=== PATIENT | male | born 1995 | race African-American/Black ===

== ENCOUNTER 2024-12-01 07:49 | Emergency (ER) | payer BC, MEDICAID ==
[~2024-12-01] VITALS: Ht 160 cm; Wt 46.7 kg
[2024-12-01 07:50] VITALS: BP 127/95; PULSE 121; TEMP 98.4
--- NOTE | 2024-12-01 08:05 | ED.PDOC ---
SOB-HPI HPI Comments A 29 YEAR OLD MALE PRESENTS TO THE ED WITH COMPLAINT OF ASTHMA EXACERBATION . PT PRESENTS WITH MOTHER, WITH PT HAVING HISTORY OF AUTISM AND STATES PT HAS BEEN HAVING WHEEZING AND COUGH FOR THE PAST 2 X DAYS. PT HAS BEEN USING HIS HOME NEBULIZER BUT STATES IT HAS NOT BEEN HELPING AND CAME TO ED FOR EVALUATION. PATIENT DENIES FEVER, CHILLS, SHORTNESS OF BREATH, CHEST PAIN, ABDOMINAL PAIN, NAUSEA, VOMITING, HEADACHE, OR OTHER COMPLAINTS. NO OTHER SYMPTOMS OR MODIFYING FACTORS AT THIS TIME. PATIENT IS ALERT, ORIENTED X 4, AND HAS STEADY GAIT. Chief Complaint: Asthma Time Seen by MD: 08:01 Reviewed notes: Nurses Notes, Medications, Allergies Information Source: Patient, Relative (Mother) Mode of Arrival: Ambulatory Brought in by: MOTHER Severity: Moderate Timing: Days Duration: Since onset Context: Spontaneous Onset History of: Asthma Modifying Factors: Inhaler Associated Signs and Symptoms: Wheeze If cough with SOB: Non-Productive Past Medical History PAST MEDICAL HISTORY: Asthma Past Medical History (Other): AUTISM Surgical History: Denies all surgeries Family History Family History: Reviewed,noncontributory to illness Social History Smoker: Non-Smoker Alcohol: Denies ETOH Use Drugs: Denies Drug Use Lives In: Home Constitutional: denies: chills, diaphoresis, fatigue, fever, malaise, sweats, weakness, others EENTM: denies: blurred vision, double vision, ear bleeding, ear discharge, ear drainage, ear pain, ear ringing, eye pain, eye redness, hearing loss, mouth pain, mouth swelling, nasal discharge, nose bleeding, nose congestion, nose pain, photophobia, tearing, throat pain, throat swelling, voice changes, others Respiratory: reports: cough, wheezing; denies: hemoptysis, orthopnea, SOB at rest, shortness of breath, SOB with excertion, stridor, others Cardiovascular: denies: chest pain, dizzy spells, diaphoresis, Dyspnea on exertion, edema, irregular heart beat, left arm pain, lightheadedness, palpitations, PND, syncope, others Gastrointestinal: denies: abdomen distended, abdominal pain, blood streaked bowels, constipated, diarrhea, dysphagia, difficulty swallowing, hematemesis, melena, nausea, poor appetite, poor fluid intake, rectal bleeding, rectal pain, vomiting, others Genitourinary: denies: burning, dysuria, flank pain, frequency, hematuria, incontinence, penile discharge, penile sore, pain, testicle pain, testicle swelling, urgency, others Neurological: denies: dizziness, fainting, headache, left sided numbness, left sided weakness, numbness, paresthesia, pre-existing deficit, right sided numbness, right sided weakness, seizure, speech problems, tingling, tremors, weakness, others Musculoskeletal: denies: back pain, gout, joint pain, joint swelling, muscle pain, muscle stiffness, neck pain, others Integumetry: denies: bruises, change in color, change in hair/nails, dryness, laceration, lesions, lumps, rash, wounds, others Allergic/Immunocompromised: denies: Difficulty Healing, Frequent Infections, Hives, Itching, others Hematologic/Lymphatic: denies: anemia, blood clots, easy bleeding, easy bruising, swollen glands, others Endocrine: denies: excessive hunger, excessive sweating, excessive thirst, excessive urination, flushing, intolerance to cold, intolerance to heat, unex plained weight gain, unexplained weight loss, others Psychiatric: denies: anxiety, bipolar disorder, depression, hopeless, panic disorder, schizophrenia, sleepless, suicidal, others All Other Systems: Reviewed and Negative Physical Exam General Appearance: No Apparent Distress, Normal HEENT: Normal ENT Inspection, PERRL/EOMI, Pharynx Normal, TMs Normal Neck: Full Range of Motion, Non-Tender, Normal, Normal Inspection Respiratory: Chest Non-Tender, Expiration, No Accessory Muscle Use, No Resp iratory Distress, Wheezing Cardiovascular: No Edema, No JVD, No Murmur, No Gallop, Normal Peripheral Pulse s, Regular Rate/Rhythm Breast Exam: Deferred Gastrointestinal: No Organomegaly, Non Tender, No Pulsatile Mass, Normal Bowel Sounds, Soft Genitalia: Deferred Pelvic: Deferred Rectal: Deferred Extremities: No calf tenderness, Normal capillary refill, Normal inspection, Normal range of motion, Non-tender, No pedal edema Musculoskeletal : Apperance: Normal Neurologic: Alert, youth leader II-XII nml as Tested, No Motor Deficits, Normal Affect, Normal Mood, No Sensory Deficits Cerebellar Function: Normal Reflexes: Normal Skin: Dry, Normal Color, Warm Peripheral Pulses: 2+ carotid (R), 2+ carotid (L) Lymphatic: No Adenopathy Was a procedure done? Was a procedure done?: No Differential Dx Differential Diagnosis: Asthma, Bronchitis, Pneumonia, Respiratory Distress, Pharyngitis, URI X-Ray, Labs, Meds, VS Vital Signs Date Time Temp Pulse Resp B/P (MAP) Pulse Ox O2 Delivery O2 Flow Rate FiO2 12/01/24 08:25 18 97 Room Air* 0 21 12/01/24 07:50 98.4 121 22 127/95 95 98.4 Current Medications Medications (Trade) Dose Ordered Sig/Chucky Route Start Time Stop Time Status Last Admin Albuterol (Ventolin Medneb) 5 mg ONCE ONCE NEB 12/01/24 08:00 12/01/24 08:01 DC 12/01/24 08:25 Ipratropium [place] (Atrovent Medneb) 1 mg ONCE ONCE NEB 12/01/24 08:00 12/01/24 08:01 DC 12/01/24 08:25 Methylprednisolone Sodium Succinate (Solu Medrol) 125 mg ONCE ONCE IM 12/01/24 08:00 12/01/24 08:01 DC 12/01/24 08:14 [place] [address] Ph: [phone] DIAGNOSTIC IMAGING Diagnostic Imaging Report : [id number] Signed PATIENT: GLENDA CORRAL ACCT: [id number] UNIT: [id number] : 1995 LOC: ER ROOM / BED: / AGE / SEX: 29 / M ADM STATUS: REG ER SERVICE [id number] ORDERING PHYSICIAN: YOHANA MARTINEZ PROCEDURE(s): CXR1 - CHEST XRAY 1 VIEW REASON: WHEEZING, HX OF ASTHMA ORDER NUMBER(s): [id number], ACCESSION NUMBER(s): [id number] CHEST RADIOGRAPH Indication: WHEEZING, HX OF ASTHMA Technique: XY CHEST XRAY 1 VIEW Comparison: None FINDINGS: The cardiac silhouette is unremarkable. The lungs demonstrate no pulmonary airspace consolidation. The pulmonary vasculature is unremarkable. There is no pleural effusion. There is no pneumothorax. IMPRESSION: No pulmonary airspace consolidation. ATED BY: OLU PEREZ MD DICTATED DATE/TIME: 12/01/24825 SIGNED BY: OLU PEREZ MD SIGNED DATE/TIME: 12/01/24825 CC: X-Ray, Labs, Meds, VS Comment COURSE: EXTERNAL MEDICAL RECORDS REVIEWED: [NONE] INDEPENDENT HISTORIANS: [NONE] SOCIAL DETERMINANTS OF HEALTH: [NONE] LABS ORDERED: NONE REVIEWED AND INTERPRETED RESULTS: NONE IMAGING ORDERED: CHEST X-RAY TREATMENTS ORDERED: PREDNISONE 125 MG, IPRATROPIUM 1 MG , ALBUTEROL 5 MG PROCEDURES PERFORMED: NONE CRITICAL CARE TIME: NONE I HAVE DISCUSSED THE PATIENT WITH THE ATTENDING PHYSICIAN, DR. FUENTES, HE AGREES WITH THE PATIENT'S PLAN OF CARE AND DISPOSITION. BASED ON HISTORY OF PRESENT ILLNESS, AND PHYSICAL EXAM, PATIENT WILL BE DISCHARGED HOME. DISCUSSED PLAN FOR DISCHARGE HOME WITH RX [MEDROL DOSE PACK AND ALBUTEROL INHALER *]. MEDICATION WARNINGS GIVEN. SHARED DECISION MAKING: DISCUSSED WITH PATIENT THAT THEIR WORKUP WAS NORMAL. PATIENT INSTRUCTED TO FOLLOW UP WITH PRIMARY CARE PROVIDER IN 1-2 DAYS FOR RE- EVALUATION OF SYMPTOMS. PATIENT VERBALIZES UNDERSTANDING TO RETURN TO ED FOR NEW OR WORSENING SYMPTOMS OR IF FOLLOW UP WITH PCP CANNOT BE OBTAINED. PATIENT FEELS COMFORTABLE GOING HOME AT THIS TIME. ALL QUESTIONS ADDRESSED AT TIME OF DISCHARGE. Time of 1ST Reevaluation: 09:00 Reevaluation 1ST: Improved Patient Education/Counseling: Diagnosis, Treatment, Need For Follow Up, Other (PT AUTISM HISTORY) Family Education/Counseling: Diagnosis, Treatment, Need For Follow Up Medical Screening: No EMC Exist At This Time SEPSIS Sepsis Screen Date sepsis recognized/suspect: Dec 01, 2024 Time Sepsis recognized/suspect: 0752 Recent Procedure: No On Antibiotic Therapy: No Respiratory Rate >20: No Heart Rate >90: No Temp<36 C (96.8 F) or >38.3 C: No SBP <90 or MAP <65 mmHG: No New Acute Mental Status Change: No Is the patient on CPAP, BIPAP,: No Physician Orders Chest Xray 1 View (12/01/24 07:56) Vital Signs Date Time Temp Pulse Resp B/P (MAP) Pulse Ox O2 Delivery O2 Flow Rate FiO2 12/01/24 08:25 18 97 Room Air* 0 21 12/01/24 07:50 98.4 121 22 127/95 95 98.4 Medications Medications Dose Ordered Sig/Chucky Route Start Time Stop Time Status Last Admin Dose Admin Albuterol 5 mg ONCE ONCE NEB 10/25/25 08:00 12/01/24 08:01 DC 12/01/24 08:25 Ipratropium [place] 1 mg ONCE ONCE NEB 12/01/24 08:00 12/01/24 08:01 DC 12/01/24 08:25 Methylprednisolone Sodium Succinate 125 mg ONCE ONCE IM 12/01/24 08:00 12/01/24 08:01 DC 12/01/24 08:14 Departure 1 Departure Time of Disposition: 09:00 Impression: Primary Impression: Asthma exacerbation Qualified Codes: J45.901 - Unspecified asthma with (acute) exacerbation Disposition: HOME / SELF CARE / HOMELESS Condition: Stable Additional Instructions: ======= PED INSTRUCTIONS: FOLLOW-UP WITH [facility] IN 1 TO 2 DAYS. TAKE MEDICATIONS PRESCRIBED. RETURN TO ED FOR ANY NEW OR WORSENING SYMPTOMS. e-Prescriptions Albuterol Sulfate (Albuterol Sulfate Hfa) 108 Mcg/Act Aer 108 MCG IN TID, #100 AER Prov: YOHANA MARTINEZ 12/01/24 Methylprednisolone (Medrol Dosepak) 4 Mg Lj 4 MG PO UD, #21 TAB UAD Prov: YOHANA MARTINEZ 12/01/24 Discharged With: Self, Relative Critical Care Note Critical Care Time?: No Stability Stability form required: No Heart Score Heart Score: Heart Score Response (Comments) Value History N/A 0 EKG N/A 0 Age N/A 0 Risk Factors N/A 0 Troponin N/A 0 Total 0 I personally scribed for YOHANA MARTINEZ ([email or web address]) on 12/01/24 at 08:05. Electronically submitted by Denae Smith ([email or web address]). I personally scribed for YOHANA MARTINEZ ([email or web address]) on 12/01/24 at 08:31. Electronically submitted by Denae Smith ([email or web address]). YOHANA MARTINEZ Dec 01, 2024 08:05
[2024-12-01] MEDS: methylPREDNISolone SOD SUCC 125 MG/2 ML VL IM ONE (08:14)
--- NOTE | 2024-12-01 08:24 | DVH ---
CHEST RADIOGRAPH Indication: WHEEZING, HX OF ASTHMA Technique: XY CHEST XRAY 1 VIEW Comparison: None FINDINGS: The cardiac silhouette is unremarkable. The lungs demonstrate no pulmonary airspace consolidation. Th e pulmonary vasculature is unremarkable. There is no pleural effusion. There is no pneumothorax. IMPRESSION: No pulmonary airspace consolidation.
[2024-12-01 08:25] VITALS: RESP 18; O2SAT 97
[2024-12-01] MEDS: IPRATROPIUM BROM 0.5 MG/2.5ML INH SOL NEB ONE (08:25)
[2024-12-01] MEDS: ALBUTEROL SULF 2.5 MG/0.5ML(0.5%) NEB SOLN NEB ONE (08:25)
[2024-12-01] MEDS ORDERED: ALBU108A5 IN (08:50)
[2024-12-01] MEDS ORDERED: METH4PAK PO (08:50)
[2024-12-02] MEDS ORDERED: ACET500C43 PO (22:01)
[2024-12-02] MEDS ORDERED: BRIM0.2S17 RIGHTEYE (22:01)
[2024-12-02] MEDS ORDERED: PRED1SUS4 OP (22:03)
[2024-12-02] MEDS ORDERED: POM (23:58)
== END 2024-12-01 08:50 | disposition home or self-care (01) ==
LOC: ER 07:49
DX: J45.901 Unspecified asthma with (acute) exacerbation (principal); F84.0 Autistic disorder
CPT/HCPCS: 71045; 94640; 96372; 99283; J2919

== ENCOUNTER 2024-12-02 07:51 | Inpatient (IN) | payer BC, MEDICAID ==
[2024-12-02] VITALS (12 sets, daily range): BP systolic 111–127; BP diastolic 50–75; PULSE 66–126; RESP 18–29; TEMP 98.1–98.3; O2SAT 2–100
[~2024-12-02] VITALS: Ht 160 cm; Wt 52.8 kg
[~2024-12-02 07:51] MED LIST: ALBU108A5 IN; METH4PAK PO
[2024-12-02] MEDS: ALBUTEROL SULF 2.5 MG/0.5ML(0.5%) NEB SOLN NEB ONE ×3 (08:11→08:41)
--- NOTE | 2024-12-02 08:19 | ED.PDOC ---
SOB-HPI HPI Comments This is a 29 year-old male, with a Hx of Asthma and Glaucoma, who presents to the ED with a chief complaint of SOB as of hours ago. Per mother, patient was seen here yesterday for SOB and sent home with steroids. Mother reports relief with steroids, until this morning when SOB began to re-occur Patient was given an at home breathing treatment with no relief, and brought to the ED for further evaluation. Patient presents to the ED with audible wheezes and saturating at 91% on room air. Patient has no further complaints at this time and otherwise denies further associated symptoms of weakness, chest pain, palpitations, dizziness, fever, or LOC. Chief Complaint: Shortness of Breath Time Seen by MD: 08:06 Reviewed notes: Medications, Allergies Information Source: Patient, Relative (Mother) Mode of Arrival: Ambulatory Severity: Moderate Timing: Hours Duration: Since onset Context: At Rest, With Light Exertion, With Heavy Exertion History of: Asthma Associated Signs and Symptoms: Wheeze Past Medical History PAST MEDICAL HISTORY: Asthma Past Medical History (Other): Glaucoma Surgical History: Denies all surgeries Family History Family History: Reviewed,noncontributory to illness Social History Smoker: Non-Smoker Alcohol: Denies ETOH Use Drugs: Denies Drug Use Lives In: Home Constitutional: denies: chills, diaphoresis, fatigue, fever, malaise, sweats, weakness, others EENTM: denies: blurred vision, double vision, ear bleeding, ear discharge, ear drainage, ear pain, ear ringing, eye pain, eye redness, hearing loss, mouth pain, mouth swelling, nasal discharge, nose bleeding, nose congestion, nose pain, photophobia, tearing, throat pain, throat swelling, voice changes, others Respiratory: reports: SOB at rest, shortness of breath, SOB with excertion; denies: cough, hemoptysis, orthopnea, stridor, wheezing, others Cardiovascular: denies: chest pain, dizzy spells, diaphoresis, Dyspnea on exertion, edema, irregular heart beat, left arm pain, lightheadedness, palpitations, PND, syncope, others Gastrointestinal: denies: abdomen distended, abdominal pain, blood streaked bowels, constipated, diarrhea, dysphagia, difficulty swallowing, hematemesis, melena, nausea, poor appetite, poor fluid intake, rectal bleeding, rectal pain, vomiting, others Genitourinary: denies: burning, dysuria, flank pain, frequency, hematuria, incontinence, penile discharge, penile sore, pain, testicle pain, testicle swelling, urgency, others Neurological: denies: dizziness, fainting, headache, left sided numbness, left sided weakness, numbness, paresthesia, pre-existing deficit, right sided numbne ss, right sided weakness, seizure, speech problems, tingling, tremors, weakness, others Musculoskeletal: denies: back pain, gout, joint pain, joint swelling, muscle pain, muscle stiffness, neck pain, others Integumetry: denies: bruises, change in color, change in hair/nails, dryness, laceration, lesions, lumps, rash, wounds, others Allergic/Immunocompromised: denies: Difficulty Healing, Frequent Infections, Hives, Itching, others Hematologic/Lymphatic: denies: anemia, blood clots, easy bleeding, easy bruising, swollen glands, others Endocrine: denies: excessive hunger, excessive sweating, excessive thirst, excessive urination, flushing, intolerance to cold, intolerance to heat, unexplained weight gain, unexplained weight loss, others Psychiatric: denies: anxiety, bipolar disorder, depression, hopeless, panic disorder, schizophrenia, sleepless, suicidal, others All Other Systems: Reviewed and Negative Physical Exam General Appearance: Moderate Distress HEENT: Normal ENT Inspection, Pharynx Normal, TMs Normal Neck: Full Range of Motion, Non-Tender, Normal, Normal Inspection Respiratory: Respiratory Distress, Wheezing Cardiovascular: No Edema, No JVD, No Murmur, No Gallop, Normal Peripheral Pulses, Regular Rate/Rhythm Breast Exam: Deferred Gastrointestinal: No Organomegaly, Non Tender, No Pulsatile Mass, Normal Bowel Sounds, Soft Genitalia: Deferred Pelvic: Deferred Rectal: Deferred Extremities: No calf tenderness, Normal capillary refill, Normal inspection, Normal range of motion, Non-tender, No pedal edema Musculoskeletal : Apperance: Normal Neurologic: Alert, manager of corporate II-XII nml as Tested, No Motor Deficits, Normal Affect, Normal Mood, No Sensory Deficits Cerebellar Function: NOT DONE Reflexes: NOT DONE Skin: Dry, Normal Color, Warm Peripheral Pulses: 3+ Radial (R), 3+ Radial (L) Lymphatic: No Adenopathy Was a procedure done? Was a procedure done?: No Differential Dx Differential Diagnosis: Anxiety, Asthma, Bronchitis, CHF, Panic Attack, Sinusitis, Allergic Rhinitis X-Ray, Labs, Meds, VS Vital Signs Date Time Temp Pulse Resp B/P (MAP) Pulse Ox O2 Delivery O2 Flow Rate FiO2 12/02/24 10:00 98.3 135 22 113/57 (75) 100 98.3 12/02/24 08:41 97 Nasal Cannula* 2 28 12/02/24 08:13 111 22 100 Nasal Cannula* 3 32 12/02/24 08:13 98.7 111 22 132/79 (96) 100 98.7 12/02/24 08:13 98 Nasal Cannula* 3 32 12/02/24 08:11 99 Nasal Cannula* 2 28 12/02/24 08:01 98.2 130 24 91 98.2 12/02/24 08:01 123 Lab Test 12/02/24 09:15 12/02/24 08:11 Range/Units Lactic Acid Level 2.2 *H 0.4-2.0 mmol/L White Blood Count 14.7 H 4.4-10.8 10^3/uL Red Blood Count 5.10 4.5-5.90 10^6/uL Hemoglobin 15.1 13.5-17.5 g/dL Hematocrit 46.4 41.0-53.0 % Mean Corpuscular Volume 91.0 80.0-100.0 fL Mean Corpuscular Hemoglobin 29.7 28.0-32.0 pg Mean Corpuscular Hemoglobin Concent 32.6 32.0-36.0 g/dL Red Cell Distribution Width 14.7 H 11.8-14.3 % Platelet Count 301 140-450 10^3/uL Mean Platelet Volume 6.8 L 6.9-10.8 fL Neutrophils (%) (Auto) 77.0 37.0-80.0 % Lymphocytes (%) (Auto) 10.7 10.0-50.0 % Monocytes (%) (Auto) 12.0 0.0-12.0 % Eosinophils (%) (Auto) 0.1 0.0-7.0 % Basophils (%) (Auto) 0.2 0.0-2.0 % Neutrophils # (Auto) 11.3 H 1.6-8.6 10 ^3/uL Lymphocytes # (Auto) 1.6 0.4-5.4 10 ^3/uL Monocytes # (Auto) 1.8 H 0-1.3 10 ^3/uL Eosinophils # (Auto) 0 0-0.8 10 ^3/uL Basophils # (Auto) 0 0-0.2 10 ^3/uL Nucleated Red Blood Cells 0.1 % Sodium Level 148 H 136-145 mmol/L Potassium Level 3.9 3.5-5.1 mmol/L Chloride Level 114 H 98-107 mmol/L Carbon Dioxide Level 23 20-31 mmol/L Anion Gap 11 5-15 Blood Urea Nitrogen 14 9-23 mg/dL Creatinine 1.05 0.700-1.30 mg/dL Glomerular Filtration Rate Calc 100 >90 mL/min BUN/Creatinine Ratio 13.3 10.0-20.0 Serum Glucose 110 H 74-106 mg/dL Calcium Level 8.9 8.7-10.4 mg/dL Current Medications Medications (Trade) Dose Ordered Sig/Chucky Route Start Time Stop Time Status Last Admin Albuterol (Ventolin Medneb) 5 mg ONCE ONCE NEB 12/02/24 08:00 12/02/24 08:01 DC 12/02/24 08:11 Methylprednisolone Sodium Succinate (Solu Medrol) 125 mg ONCE ONCE IV 12/02/24 08:15 12/02/24 08:16 DC 12/02/24 08:25 Magnesium Sulfate/ Dextrose 100 ml @ 100 mls/hr ONCE ONCE IV 12/02/24 08:15 12/02/24 09:14 DC 12/02/24 08:25 Ipratropium [place] (Atrovent Medneb) 0.5 mg ONCE ONCE NEB 12/02/24 08:15 12/02/24 08:16 DC 12/02/24 08:44 Albuterol (Ventolin Medneb) 20 mg ONCE ONCE NEB 12/02/24 08:30 12/02/24 08:32 DC 12/02/24 08:41 Ceftriaxone Sodium 50 ml @ 100 mls/hr ONCE ONCE IV 12/02/24 09:30 12/02/24 09:59 DC 12/02/24 09:25 Azithromycin 250 ml @ 125 mls/hr ONCE ONCE IV 12/02/24 10:30 12/02/24 12:29 12/02/24 09:56 Sodium Chloride 1,000 ml @ 1,000 mls/hr Q1H ONCE IV 12/02/24 09:30 12/02/24 10:29 DC 12/02/24 09:28 Sodium Chloride 1,000 ml @ 1,000 mls/hr Q1H ONCE IV 12/02/24 10:15 12/02/24 11:14 12/02/24 10:13 Patient alert. Was placed on oxygen. Continues to wheeze. Answering questions. Possible sepsis. Possible pneumonia. Possible pneumonitis. Establish intravenous access. Was given Rocephin. Was given azithromycin. Sepsis protocol. Continue monitoring. Images Reviewed?: Images reviewed and evaluated by me Time of 1ST Reevaluation: 09:19 Reevaluation 1ST: Unchanged Patient Education/Counseling: Diagnosis, Treatment Family Education/Counseling: Diagnosis, Treatment SEPSIS Sepsis Screen Date sepsis recognized/suspect: Dec 02, 2024 Time Sepsis recognized/suspect: 804 Recent Procedure: No On Antibiotic Therapy: No Respiratory Rate >20: Yes Heart Rate >90: Yes Temp<36 C (96.8 F) or >38.3 C: No SBP <90 or MAP <65 mmHG: No New Acute Mental Status Change: No Is the patient on CPAP, BIPAP,: No Physician Orders Chest Portable (12/02/24 07:58) Oxygen (12/02/24 07:58) Blood Culture (12/02/24 09:11) Azithromycin 500mg/ 250ml (Zithromax 50 (12/02/24 10:30) Sodium Chloride 0.9% (12/02/24 10:15) Vital Signs Date Time Temp Pulse Resp B/P (MAP) Pulse Ox O2 Delivery O2 Flow Rate FiO2 12/02/24 10:00 98.3 135 22 113/57 (75) 100 98.3 12/02/24 08:41 97 Nasal Cannula* 2 28 12/02/24 08:13 111 22 100 Nasal Cannula* 3 32 12/02/24 08:13 98.7 111 22 132/79 (96) 100 98.7 12/02/24 08:13 98 Nasal Cannula* 3 32 12/02/24 08:11 99 Nasal Cannula* 2 28 12/02/24 08:01 98.2 130 24 91 98.2 12/02/24 08:01 123 Laboratory Tests Test 12/02/24 08:11 12/02/24 09:15 White Blood Count 14.7 10^3/uL (4.4-10.8) H Lactic Acid Level 2.2 mmol/L (0.4-2.0) *H Medications Medications Dose Ordered Sig/Chucky Route Start Time Stop Time Status Last Admin Dose Admin Albuterol 5 mg ONCE ONCE NEB 12/02/24 08:00 12/02/24 08:01 DC 12/02/24 08:11 Albuterol 20 mg ONCE ONCE NEB 12/02/24 08:30 12/02/24 08:32 DC 12/02/24 08:41 Azithromycin 250 ml @ 125 mls/hr ONCE ONCE IV 12/02/24 10:30 12/02/24 12:29 12/02/24 09:56 Ceftriaxone Sodium 50 ml @ 100 mls/hr ONCE ONCE IV 12/02/24 09:30 12/02/24 09:59 DC 12/02/24 09:25 Ipratropium [place] 0.5 mg ONCE ONCE NEB 12/02/24 08:15 12/02/24 08:16 DC 12/02/24 08:44 Magnesium Sulfate/ Dextrose 100 ml @ 100 mls/hr ONCE ONCE IV 12/02/24 08:15 12/02/24 09:14 DC 12/02/24 08:25 Methylprednisolone Sodium Succinate 125 mg ONCE ONCE IV 12/02/24 08:15 12/02/24 08:16 DC 12/02/24 08:25 Sodium Chloride 1,000 ml @ 1,000 mls/hr Q1H ONCE IV 12/02/24 09:30 12/02/24 10:29 DC 12/02/24 09:28 Sodium Chloride 1,000 ml @ 1,000 mls/hr Q1H ONCE IV 12/02/24 10:15 12/02/24 11:14 12/02/24 10:13 Departure 1 Departure Time of Disposition: 11:04 Impression: Primary Impression: Acute respiratory failure Qualified Codes: J96.01 - Acute respiratory failure with hypoxia Additional Impressions: Asthma exacerbation Qualified Codes: J45.901 - Unspecified asthma with (acute) exacerbation Sepsis, unspecified organism Qualified Codes: A41.9 - Sepsis, unspecified organism Disposition: ADMITTED INPATIENT Admit to: Med Surg Condition: Guarded Critical Care Note Critical Care Time?: Yes (90 min-critical care time only) Stability Stability form required: No Heart Score Heart Score: Heart Score Response (Comments) Value History Slightly Suspicious 0 EKG N/A 0 Age <45 0 Risk Factors No known risk factors 0 Troponin N/A 0 Total 0 I personally scribed for DAMION FUENTES MD ([email or web address]) on 12/02/24 at 08:19. Electronically submitted by Veda Mcfarlane ([facility]). DAMION FUENTES MD Dec 02, 2024 08:19
[2024-12-02 08:20] LABS: Hematocrit 46.4 % (41.0-53.0); Hemoglobin 15.1 g/dL (13.5-17.5); Mean Corpuscular Hemoglobin 29.7 pg (28.0-32.0); Mean Corpuscular Volume 91.0 fL (80.0-100.0); Nucleated Red Blood Cells % 0.1 %
[2024-12-02] MEDS: methylPREDNISolone SOD SUCC 125 MG/2 ML VL IV ONE (08:25)
[2024-12-02] MEDS: MAGNESIUM SULFATE 1GM/100ML 100 ML IV ONE (08:25)
[2024-12-02 08:27] LABS: Potassium 3.9 mmol/L (3.5-5.1)
[2024-12-02 08:28] LABS: Anion Gap 11 (5-15); Carbon Dioxide 23 mmol/L (20-31)
[2024-12-02 08:29] LABS: Calcium 8.9 mg/dL (8.7-10.4)
[2024-12-02 08:31] LABS: Chloride 114 mmol/L (98-107); Sodium 148 mmol/L (136-145)
[2024-12-02 08:33] LABS: BUN/Creatinine Ratio 13.3 (10.0-20.0); Blood Urea Nitrogen 14 mg/dL (9-23)
[2024-12-02 08:43] LABS: Glucose 110 mg/dL (74-106)
[2024-12-02] MEDS: IPRATROPIUM BROM 0.5 MG/2.5ML INH SOL NEB ONE (08:44)
--- NOTE | 2024-12-02 08:53 | DVH ---
XY CHEST PORTABLE, HISTORY: sob COMPARISON: XY CHEST XRAY 1 VIEW on DOS: 12/01/24 XY CHEST XRAY 1 VIEW on DOS: 12/01/24 TECHNICAL DATA: 1 view of the chest was obtained. FINDINGS: Lines and tubes: None Cardiomediastinal silhouette: normal Pulmonary vasculature: normal Lung expansion: normal Lung airspace: normal Lung interstitium: normal Pleura: normal Pneumothorax: no Bones: Unremarkable Other: no IMPRESSION: No acute intrathoracic abnormality.
[2024-12-02] MEDS: SODIUM CHLORIDE 0.9% 1,000 ML IV ONE ×3 (09:28→14:40)
[2024-12-02] MEDS: AZITHROMYCIN 500MG/ 250ML 250 ML IV ONE (09:56)
[2024-12-02 10:11] LABS: Lactic Acid w/Reflex 2.2 mmol/L (0.4-2.0)
--- NOTE | 2024-12-02 11:13 | DVHHPRES ---
History of Present Illness Resident Creating Document: HEYDI CHENG History of Present Illness Riky Corea is a 29-year-old male patient who presents to ED with chief complaint of progressive dyspnea from Functional Class II to Functional Class IV which started two days before his admission, associated with productive cough with clear sputum and fever. Patient was evaluated urgent care one day ago where he was indicated Medrol Lj and nebulizing treatment with diagnosis of asthma exacerbation. Due to ongoing symptoms and refractory response to Medrol pack, patient decided to come for to the ED for further evaluation. In the ED he was desaturating, with audible wheezing, indicating IV methylprednisolone, IV magnesium and bronchodilators treatment, he does presents vital signs in laboratory findings compatible with sepsis, indicating empiric IV antibiotic (ceftriaxone azithromycin). Patient will be admitted for further evaluation. Denies any other associated symptom. 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 Surgical history: Retinal detachment treatment Family history: Noncontributory Social history: [place] family (next of kin is mother). Denies current tobacco, alcohol and other drug abuse Allergies: Denies Home medication: Dorzolamide in right eye, he did received Medrol Lj and nebulizing treatment 24 hours ago. Patient seen and examined at bedside. Currently on nasal cannula 2 L/min. Has no new complaints. Past Medical History Per HPI Past Surgical History Per HPI Family History Per HPI Past Social History Per HPI Review of Systems Review of Systems Per HPI Allergies: Coded Allergies: NO KNOWN ALLERGIES (Unverified , 12/01/24) Medications Current Medications Medications Dose Ordered Sig/Chucky Route Start Time Stop Time Status Last Admin Dose Admin Acetaminophen 325 mg Q4HP PRN PO 12/02/24 11:15 UNV Ondansetron HCl 4 mg Q4HP PRN IV 12/02/24 11:15 UNV Morphine Sulfate 2 mg Q4HPRN PRN IV 12/02/24 11:15 UNV Enoxaparin Sodium 40 mg DAILY SC 12/03/24 10:00 UNV Exam Vital Signs Vital Signs Date Time Temp Pulse Resp B/P (MAP) Pulse Ox O2 Delivery O2 Flow Rate FiO2 12/02/24 10:00 98.3 135 22 113/57 (75) 100 98.3 12/02/24 08:41 Nasal Cannula* 2 28 Exam Patient lying in bed, in mild acute distress General: Lucid, afebrile, cachectic, mucosae are dry. Blind from left eye. Cardiovascular: Normal S1 and S2. No murmurs, gallops or rubs Respiratory: Regular ventilation mechanics, tachypnea. Generalize inspiratory expiratory wheezing. On nasal cannula 2 L/min Abdomen: Soft, nontender, no organomegaly, normal bowel sounds MSK/skin: Mobilizes 4 limbs. Skin is dry and warm Neurological: Oriented in 3 spheres. No motor no sensitive deficits. Pupils are isocoric and reactive Labs/Xrays Labs Test 12/02/24 09:15 12/02/24 08:11 Range/Units Lactic Acid Level 2.2 *H 0.4-2.0 mmol/L White Blood Count 14.7 H 4.4-10.8 10^3/uL Red Blood Count 5.10 4.5-5.90 10^6/uL Hemoglobin 15.1 13.5-17.5 g/dL Hematocrit 46.4 41.0-53.0 % Mean Corpuscular Volume 91.0 80.0-100.0 fL Mean Corpuscular Hemoglobin 29.7 28.0-32.0 pg Mean Corpuscular Hemoglobin Concent 32.6 32.0-36.0 g/dL Red Cell Distribution Width 14.7 H 11.8-14.3 % Platelet Count 301 140-450 10^3/uL Mean Platelet Volume 6.8 L 6.9-10.8 fL Neutrophils (%) (Auto) 77.0 37.0-80.0 % Lymphocytes (%) (Auto) 10.7 10.0-50.0 % Monocytes (%) (Auto) 12.0 0.0-12.0 % Eosinophils (%) (Auto) 0.1 0.0-7.0 % Basophils (%) (Auto) 0.2 0.0-2.0 % Neutrophils # (Auto) 11.3 H 1.6-8.6 10 ^3/uL Lymphocytes # (Auto) 1.6 0.4-5.4 10 ^3/uL Monocytes # (Auto) 1.8 H 0-1.3 10 ^3/uL Eosinophils # (Auto) 0 0-0.8 10 ^3/uL Basophils # (Auto) 0 0-0.2 10 ^3/uL Nucleated Red Blood Cells 0.1 % Sodium Level 148 H 136-145 mmol/L Potassium Level 3.9 3.5-5.1 mmol/L Chloride Level 114 H 98-107 mmol/L Carbon Dioxide Level 23 20-31 mmol/L Anion Gap 11 5-15 Blood Urea Nitrogen 14 9-23 mg/dL Creatinine 1.05 0.700-1.30 mg/dL Glomerular Filtration Rate Calc 100 >90 mL/min BUN/Creatinine Ratio 13.3 10.0-20.0 Serum Glucose 110 H 74-106 mg/dL Calcium Level 8.9 8.7-10.4 mg/dL SEPSIS Sepsis Screen Date sepsis recognized/suspect: Dec 02, 2024 Time Sepsis recognized/suspect: 812 Recent Procedure: No On Antibiotic Therapy: No Respiratory Rate >20: Yes Heart Rate >90: Yes Temp<36 C (96.8 F) or >38.3 C: No SBP <90 or MAP <65 mmHG: No New Acute Mental Status Change: No Is the patient on CPAP, BIPAP,: No Physician Orders Chest Portable (12/02/24 07:58) Oxygen (12/02/24 07:58) Blood Culture (12/02/24 09:11) Azithromycin 500mg/ 250ml (Zithromax 50 (12/02/24 10:30) Sodium Chloride 0.9% (12/02/24 10:15) Admit (12/02/24 11:06) Code Status (12/02/24 11:06) Acetaminophen Tablet (Tylenol Tablet) (12/02/24 11:15) Ondansetron Hcl (Zofran) (12/02/24 11:15) Complete Blood Count (12/03/24 04:00) Comprehensive Metabolic Panel (12/03/24 04:00) Npo (Nothing By Mouth) Diet (12/02/24 Lunch) Echo 2d Mode Cardiac Dop (12/02/24 11:06) Morphine Sulfate Injection (12/02/24 11:15) Enoxaparin Sodium (Lovenox) (12/03/24 10:00) Oxygen By Nasal Cannula (12/02/24 11:06) Stat Ekg For Chest Pain (12/02/24 11:06) Notify Of Changes From Base (12/02/24 11:06) Computer Forensics Technician For 24 Hours (12/02/24 11:06) Emergency Dysrhythmia Protocol (12/02/24 11:06) Rhythm Strips Once Every Shift (12/02/24 11:06) Abg W/ Co-Ox (12/02/24 11:06) Vitamin D, 25-Hydroxy (12/02/24 11:06) Vitamin B12 (12/02/24 11:06) Urinalysis (12/02/24 11:06) Thyroid Stimulating Hormone (12/02/24 11:06) PTPTT (12/02/24 11:06) Phosphorus (12/02/24 11:06) Magnesium (12/02/24 11:06) Lipid Panel (12/02/24 11:06) Lactic Acid W/ Reflex Order (12/02/24 11:06) Hemoglobin A1c (12/02/24 11:06) Drug Screen (12/02/24 11:06) C-Reactive Protein (12/02/24 11:06) Urine Bacterial Culture (12/02/24 11:06) Respiratory Culture W/ Gs (12/02/24 11:06) Mrsa Screen (12/02/24 11:06) Covid19 Antigen Soila (12/02/24 ) Rapid Influenza A&B (12/02/24 11:06) Ceftriaxone Ivpb Rocephin (12/03/24 09:00) Azithromycin 500mg/ 250ml (Zithromax 50 (12/03/24 10:00) Methylprednisolone Sod Succ (Solu Medrol (12/02/24 22:00) Levalbuterol Hcl (Xopenex Medneb) (12/02/24 12:00) Ipratropium Medneb (Atrovent Medneb) (12/02/24 12:00) Enoxaparin Sodium (Lovenox) (12/02/24 11:15) Enoxaparin Sodium (Lovenox) (12/03/24 10:00) Vital Signs Date Time Temp Pulse Resp B/P (MAP) Pulse Ox O2 Delivery O2 Flow Rate FiO2 12/02/24 10:00 98.3 135 22 113/57 (75) 100 98.3 12/02/24 08:41 97 Nasal Cannula* 2 28 12/02/24 08:13 111 22 100 Nasal Cannula* 3 32 12/02/24 08:13 98.7 111 22 132/79 (96) 100 98.7 12/02/24 08:13 98 Nasal Cannula* 3 32 12/02/24 08:11 99 Nasal Cannula* 2 28 12/02/24 08:01 98.2 130 24 91 98.2 12/02/24 08:01 123 Laboratory Tests Test 12/02/24 08:11 12/02/24 09:15 White Blood Count 14.7 10^3/uL (4.4-10.8) H Lactic Acid Level 2.2 mmol/L (0.4-2.0) *H Medications Medications Dose Ordered Sig/Chucky Route Start Time Stop Time Status Last Admin Dose Admin Albuterol 5 mg ONCE ONCE NEB 12/02/24 08:00 12/02/24 08:01 DC 12/02/24 08:11 5 MG Albuterol 20 mg ONCE ONCE NEB 12/02/24 08:30 12/02/24 08:32 DC 12/02/24 08:41 20 MG Azithromycin 250 ml @ 125 mls/hr ONCE ONCE IV 12/02/24 10:30 12/02/24 12:29 12/02/24 09:56 125 MLS/HR Ceftriaxone Sodium 50 ml @ 100 mls/hr ONCE ONCE IV 12/02/24 09:30 12/02/24 09:59 DC 12/02/24 09:25 100 MLS/HR Ipratropium [place] 0.5 mg ONCE ONCE NEB 12/02/24 08:15 12/02/24 08:16 DC 12/02/24 08:44 0.5 MG Magnesium Sulfate/ Dextrose 100 ml @ 100 mls/hr ONCE ONCE IV 12/02/24 08:15 12/02/24 09:14 DC 12/02/24 08:25 100 MLS/HR Methylprednisolone Sodium Succinate 125 mg ONCE ONCE IV 12/02/24 08:15 12/02/24 08:16 DC 12/02/24 08:25 125 MG Sodium Chloride 1,000 ml @ 1,000 mls/hr Q1H ONCE IV 12/02/24 09:30 12/02/24 10:29 DC 12/02/24 09:28 1,000 MLS/HR Sodium Chloride 1,000 ml @ 1,000 mls/hr Q1H ONCE IV 12/02/24 10:15 12/02/24 11:14 12/02/24 10:13 1,000 MLS/HR Assessment/Plan Assessment/Plan ASSESSMENT Acute respiratory failure Asthma crisis Probable community-acquired pneumonia Gram-positive/Gram-negative Sepsis secondary to probable pneumonia History of bilateral retinal detachment - residual left eye anopsia Right eye glaucoma Hypovolemia hyponatremia PLAN Patient on oxygen therapy, now Nasal cannula at 2L/min On empiric IV antibiotic (ceftriaxone and azithromycin) On oxygen therapy, bronchodilators and IV steroids Ordered panculture (blood, urine, sputum) and COVID/influenza/MRSA swab. Goals of care discussed with patient for over 18 minutes: Full code status Discussed plan with Dr. Yao, patient, mother and nurses: Admitted the patient to telemetry. Currently on oxygen therapy, bronchodilators, IV antibiotics and IV steroids. Ordered pancultures, pending results. Plan discussed with: Patient, Other (Mother and nurses) My Orders Orders - HEYDI CHENG RESIDENT Procedure Category Date Status Time Admit ADMIT 12/02/24 Transmitted 11:06 Code Status CODE 12/02/24 Transmitted 11:06 Acetaminophen Tablet PHA 12/02/24 Logged (Tylenol Tablet) 11:15 Ondansetron Hcl PHA 12/02/24 Logged (Zofran) 11:15 Complete Blood Count LAB 12/03/24 Verified 04:00 Comprehensive LAB 12/03/24 Verified Metabolic Panel 04:00 Npo (Nothing By DIET 12/02/24 Transmitted Mouth) Diet Lunch Echo 2d Mode Cardiac US 12/02/24 Logged DOP 11:06 Morphine Sulfate PHA 12/02/24 Logged Injection 11:15 Enoxaparin Sodium PHA 12/03/24 Logged (Lovenox) 10:00 Oxygen By Nasal RT 12/02/24 Transmitted Cannula 11:06 Stat Ekg For Chest WENDY 12/02/24 In Process Pain 11:06 Notify Of Changes WENDY 12/02/24 In Process From Base 11:06 Computer Forensics Technician For WENDY 12/02/24 In Process 24 Hours 11:06 Emergency Dysrhythmia WENDY 12/02/24 In Process Protocol 11:06 Rhythm Strips Once WENDY 12/02/24 In Process Every Shift 11:06 Abg W/ Co-Ox RT 12/02/24 Logged 11:06 Vitamin D, 25-Hydroxy LAB 12/02/24 Logged 11:06 Vitamin B12 LAB 12/02/24 Logged 11:06 Urinalysis LAB 12/02/24 Logged 11:06 Thyroid Stimulating LAB 12/02/24 Logged Hormone 11:06 PTPTT LAB 12/02/24 Logged 11:06 Phosphorus LAB 12/02/24 Logged 11:06 Magnesium LAB 12/02/24 Logged 11:06 Lipid Panel LAB 12/02/24 Logged 11:06 Lactic Acid W/ Reflex LAB 12/02/24 Logged Order 11:06 Hemoglobin A1c LAB 12/02/24 Logged 11:06 Drug Screen LAB 12/02/24 Logged 11:06 C-Reactive Protein LAB 12/02/24 Logged 11:06 Urine Bacterial SHARON 12/02/24 Logged Culture 11:06 Respiratory Culture SHARON 12/02/24 Logged W/ Gs 11:06 Mrsa Screen SHARON 12/02/24 Logged 11:06 Covid19 Antigen Soila LAB 12/02/24 Logged Rapid Influenza A&B LAB 12/02/24 Logged 11:06 Ceftriaxone Ivpb PHA 12/03/24 Transmitted Rocephin 09:00 Azithromycin 500mg/ PHA 12/03/24 Transmitted 250ml (Zithromax 50 10:00 Methylprednisolone PHA 12/02/24 Transmitted Sod Succ (Solu Medrol 22:00 Levalbuterol Hcl PHA 12/02/24 Transmitted (Xopenex Medneb) 12:00 Ipratropium Medneb PHA 12/02/24 Transmitted (Atrovent Medneb) 12:00 Enoxaparin Sodium PHA 12/02/24 Transmitted (Lovenox) 11:15 Enoxaparin Sodium PHA 12/03/24 Transmitted (Lovenox) 10:00 Date of Service: Dec 02, 2024 Billing Provider: RONI YAO MD Common Visit Codes: [id number] INP/OBS CARE (HIGH) Secondary Visit Codes: [id number] CARE PLAN 30 MINUTES HEYDI CHENG RESIDENT Dec 02, 2024 11:13
[2024-12-02] MEDS: ENOXAPARIN SOD 30 MG/0.3 ML SYRINGE SC ONE (11:15)
[2024-12-02] MEDS ORDERED: ACETAMINOPHEN 325 MG TAB PO PRN (11:15)
[2024-12-02] MEDS: PANTOPRAZOLE 40 MG/10 ML VIAL INJ IV ONE (11:15)
[2024-12-02] MEDS ORDERED: MORPHINE SULFATE INJ 2 MG/ml SYRG IV PRN (11:15)
[2024-12-02] MEDS ORDERED: ONDANSETRON HCL 4 MG/2 ML VIAL IV PRN (11:15)
[2024-12-02 11:42] LABS: Alanine Aminotransferase 11.0 U/L (7-40); Albumin 4.5 g/dL (3.2-4.8); Alkaline Phosphatase 81.0 U/L (46-116); Bilirubin, Direct 0.2 mg/dL (<0.3); Bilirubin, Total 0.5 mg/dL (0.2-1.0); Cholesterol 145.0 mg/dL (< 200); HDL Cholesterol 56.0 mg/dL (40-59); Magnesium 1.9 mg/dL (1.6-2.6); Total Protein 8.0 g/dL (5.7-8.2); Triglycerides 49.0 mg/dL (< 150)
[2024-12-02 11:54] LABS: INR 1.16 (0.9-1.15); Partial Thromboplastin Time 31.9 SEC (24.5-34.5); Prothrombin Time 12.1 sec (9.3-11.8)
[2024-12-02] MEDS: SODIUM CHLORIDE 0.9% 1,000 ML IV SCH (12:00)
[2024-12-02] MEDS: SODIUM CHLORIDE 0.9% 2,000 ML IV ONE (12:00)
[2024-12-02 12:02] LABS: Base Excess -9.5 mmol/L (-2.0-3.0)
[2024-12-02] MEDS: IPRATROPIUM BROM 0.5 MG/2.5ML INH SOL NEB SCH ×2 (12:06→22:28)
[2024-12-02] MEDS: LEVALBUTEROL HCL 1.25 MG/3 ML NEB NEB SCH ×2 (12:06→22:28)
[2024-12-02 12:23] LABS: COVID19 ANTIGEN SOFIA FIA NEGATIVE (NEGATIVE)
--- NOTE | 2024-12-02 13:28 | DVHSR ---
APPROVED REPORT EXAM: Two-dimensional and M-mode echocardiogram with Doppler and color Doppler. Blood Pressure: 113/57 mmHg INDICATION SOB RISK FACTORS Height: 5'3", Weight: 105 DIMENSIONS LVDd4.1 (3.8-5.7cm)LA (2D)3.2 (1.9-4.0cm)Aortic Root3.0 (2.0-3.7cm) LVDs2.6 (2.5-4.0cm)LA (MM) (1.9-4.0cm)Aortic Cusp Exc1.8 (1.5-2.0cm) EF (%) 67.0 (55-70%)Rt. Atrium3.2 (1.9-4.0cm)Asc. Aorta cm IVSd0.8 (0.7-1.1cm)RV (D) (1.8-2.4cm) PWd0.9 (0.7-1.1cm) Mitral Valve MitralMitral Stenosis E wave1.79m/sMV Mean GR.mmHg E/A ratio0.02D MVAcm2 Aortic Valve Aortic ValveAortic Stenosis V11.38m/Denise Mean GR.8mmHg V21.98m/Denise Peak GR.16mmHg LVOT Diameter1.7 (1.8-2.4cm)Doppler AVA1.58cm2 Other Information Quality : LimitedRhythm : Technically limited study due to body habitus, patient sitting up short of breath. Conclusion lvef 75% hyperdynamic LV normal rv function normal atria no severe valve abnormaliteis noted
[2024-12-02 13:57] LABS: Lactic Acid w/Reflex 4.9 mmol/L (0.4-2.0)
[2024-12-02] MEDS: acetaZOLAMIDE 250 MG TAB PO SCH (18:06)
[2024-12-02] MEDS: methylPREDNISolone SOD SUCC 40 MG/ML VL IV SCH (21:52)
[2024-12-02] MEDS: DORZOLAMIDE HCL 2% OPTH(EYE) SOL 10ML RIGHTEYE SCH (22:00)
[2024-12-02] MEDS ORDERED: BRIM0.2S17 RIGHTEYE (22:01)
[2024-12-02] MEDS ORDERED: ACET500C43 PO (22:01)
[2024-12-02] MEDS ORDERED: PRED1SUS4 OP (22:03)
[2024-12-02] MEDS ORDERED: POM (23:58)
[2024-12-03] VITALS (21 sets, daily range): BP systolic 115–121; BP diastolic 61–76; PULSE 59–97; RESP 14–20; TEMP 97.8–98.8; O2SAT 96–100
[2024-12-03 05:10] LABS: Hematocrit 39.1 % (41.0-53.0); Hemoglobin 12.8 g/dL (13.5-17.5); Mean Corpuscular Hemoglobin 29.4 pg (28.0-32.0); Mean Corpuscular Volume 89.9 fL (80.0-100.0); Nucleated Red Blood Cells % 0.1 %
[2024-12-03 05:29] LABS: Urine Protein, UAD Negative (Negative)
[2024-12-03 05:30] LABS: Amphetamine Screen, Urine Neg (NEGATIVE); Barbiturate Scree,Urine Neg (NEGATIVE); Benzodiazephine Screen, Urine Neg (NEGATIVE); Cannabinoid Screen, Urine Neg (NEGATIVE); Opiate Scree,Urine Neg (NEGATIVE); Phencyclidine Screen, Urine Neg (NEGATIVE)
[2024-12-03 05:32] LABS: Alanine Aminotransferase 10 U/L (7-40); Albumin 3.6 g/dL (3.2-4.8); Alkaline Phosphatase 64 U/L (46-116); Anion Gap 10 (5-15); BUN/Creatinine Ratio 14.3 (10.0-20.0); Blood Urea Nitrogen 12 mg/dL (9-23); Potassium 3.7 mmol/L (3.5-5.1); Total Protein 6.4 g/dL (5.7-8.2)
[2024-12-03 05:33] LABS: Bilirubin, Total 0.6 mg/dL (0.2-1.0); Calcium 7.9 mg/dL (8.7-10.4); Carbon Dioxide 20 mmol/L (20-31); Chloride 117 mmol/L (98-107); Glucose 106 mg/dL (74-106); Sodium 147 mmol/L (136-145)
[2024-12-03 05:41] LABS: Cocaine Screen, Urine Neg (NEGATIVE)
[2024-12-03] MEDS ORDERED: AZITHROMYCIN 500MG/ 250ML 250 ML IV SCH (10:00)
[2024-12-03] MEDS ORDERED: SIMBRINZA OP SCH (10:00)
[2024-12-03] MEDS ORDERED: ENOXAPARIN SOD 40 MG/0.4 ML SYRINGE SC SCH (10:00)
[2024-12-03] MEDS ORDERED: OPTHALMIC OP SCH (10:00)
[2024-12-03] MEDS: ENOXAPARIN SOD 30 MG/0.3 ML SYRINGE SC SCH (10:20)
[2024-12-03] MEDS: PANTOPRAZOLE 40 MG/10 ML VIAL INJ IV SCH (10:24)
[2024-12-03] MEDS: OPTHALMIC OP SCH (10:31)
[2024-12-03] MEDS: SIMBRINZA OP SCH (10:31)
[2024-12-03] MEDS: prednisoLONE ACETATE 1% OPTH SUSP 5ML RIGHTEYE SCH (10:45)
--- NOTE | 2024-12-03 14:01 | DVHPNRES ---
Progress Note Date Seen: Dec 03, 2024 Resident Creating Document: HAMMAD SHARMA RESIDENT Has the PT tested + for MRSA If YES, has PT been informed?: No Medical Necessity Reason Pt with a Central, PICC or Fol: No Subjective Review of Systems Mr. Riyk Corea is a 29-year-old male, with past medical history of asthma (since childhoold), bilateral retinal detachment with left eye blindness, right eye glaucoma and autism. The patient came to the ED with chief complain of 2 days of progressive dyspnea associated with fever, chills, wheezing and wet cough with yellowish-sputum. The patient went to the urgent care, were they prescribed Medrol pack and was treated with nebulization and he was sent home. The patient' symptoms did not improved and the dyspnea worsen, this prompted his visit to the ED. The patient is a poor historian the information is obtain from family member (patient's aunt). On further questioning, the patient's aunt reports that the patient had has asthma exacerbations that have required hospitalization and endochatreal intubation. The patient denies hemoptisis, chest pain, abdominal pain, nausea, vomit or other symptoms. In the ED he was tachycardic 130bpm, , tachypneic 24 rpm, O2Sat 91% with audible wheezing. The patient was labs showed elevated lactic acid, a sepsis protocol was started, with empiric antibiotics ceftriaxone 1g IV and Azitromicyn IV. Nebulizations and IV Solumedrol was started. The patient was admitted for further management and assessment. Surgical history: Retinal detachment treatment Family history: Noncontributory Social history: Denies current tobacco, alcohol and other drug abuse Allergies: Denies Hospitalization course: On 12/03/24, the patient was evaluated and assessed at bedside. VS, labs and chart was reviewed. WBC are 14.7, Lactic acid is trending down from 5.1 to 4.9. The patient continues with IV antibiotics ceftriaxone and azithromycin also, he is receiving nebulization. The patient reports feeling out of breath but bit better, patient only gives short answers when questioning. We will continue following this patient progress. ROS: patient only gives straights and short answers when questioning. His aunt reports the following: Constitutional: Weight loss. No: Fever, Chills, Sweats, Weakness, Malaise Eyes: No: Pain, Vision change, Conjunctivae inflammation, Eyelid inflammation, Other, Redness ENT: No: Ear pain, Ear discharge, Nose pain, Nose discharge, Nose congestion, Mouth pain, Mouth swelling, Throat pain, Throat swelling Respiratory: shortness of breath and wheezing. Wet Cough. Denies Hemoptysis, Pleuritic Pain, Sputum. Cardiovascular: No Chest Pain; No: Palpitations, Orthopnea, No Edema, Lt Headedness Gastrointestinal: No: Nausea, Vomiting, Abdominal Pain, Diarrhea, Constipation, Melena, Hematochezia Genitourinary: No Dysuria, No Frequency, No Incontinence, No Hematuria, No Retention Musculoskeletal: denies edema or leg swelling Skin: No: Rash, Lesions, Jaundice, Bruising Neurological: No: Weakness, Numbness, Incoordination, Change in speech, Confusion, Seizures Allergies: NO KNOWN ALLERGIES Objective vital signs Vital Sign Date Time Temp Pulse Resp B/P (MAP) Pulse Ox O2 Delivery O2 Flow Rate FiO2 12/03/24 13:36 98.8 79 18 115/73 (87) 98 98.8 12/03/24 06:12 Nasal Cannula* 2 28 Total Intake and Output 12/02/24 12/02/24 12/03/24 15:00 23:00 07:00 Intake Total 2400 ml 500 ml Output Total 600 ml Balance 2400 ml -100 ml medications Current Medications Medications Dose Ordered Sig/Chucky Route Start Time Stop Time Status Last Admin Dose Admin Acetaminophen 325 mg Q4HP PRN PO 12/02/24 11:15 Ondansetron HCl 4 mg Q4HP PRN IV 12/02/24 11:15 Morphine Sulfate 2 mg Q4HPRN PRN IV 12/02/24 11:15 Ceftriaxone Sodium 50 ml @ 100 mls/hr DAILY@09 IV 12/03/24 09:00 12/03/24 08:46 100 MLS/HR Azithromycin 250 ml @ 125 mls/hr DAILY IV 12/03/24 10:00 Hold Methylprednisolone Sodium Succinate 40 mg BID IV 12/02/24 22:00 12/03/24 10:18 40 MG Enoxaparin Sodium 30 mg DAILY SC 12/03/24 10:00 12/03/24 10:20 30 MG Pantoprazole Sodium 40 mg DAILY IV 12/03/24 10:00 12/03/24 10:24 40 MG Sodium Chloride 1,000 ml @ 50 mls/hr Q20H IV 12/02/24 12:00 12/02/24 12:00 50 MLS/HR Ipratropium [place] 0.5 mg Q4HR NEB 12/02/24 22:00 12/03/24 09:57 0.5 MG Levalbuterol HCl 0.625 mg Q4HR NEB 12/02/24 22:00 12/03/24 09:57 0.625 MG Prednisolone Acetate 1 drop BID RIGHTEYE 12/03/24 10:00 12/03/24 10:45 1 DROP Patient Own Medication 1 DAILY@0900,1400,2200 OP 12/03/24 09:00 12/03/24 10:31 1 Acetazolamide 500 mg Q12HR PO 12/03/24 22:00 Examination General Appearance: , Alert, Oriented in person, Cooperative, No acute distress. On O2 by NC 3L HEENT: Atraumatic, left eye blindness, Mucous membranes moist/pink Respiratory: Audible wheezing, decreased expansion on both lungs, ronchi and wheezing bilaterally. Cardiovascular: Regular rate, Normal S1, Normal S2, no murmurs. Abdominal: Normal bowel sounds, Soft, no tenderness Extremities: no edema, normal ROM Neuro: Strength at 5/5 X4 ext, Normal tone, Sensation intact Psych/Mental Status: patient with autism but responds to question with straight and short answers. laboratory and microbiology Laboratory Tests 12/03/24 04:47 Test 12/03/24 04:47 Range/Units Serum Glucose 106 74-106 mg/dL Microbiology Date/Time Source Procedure Growth Status 12/02/24 21:56 Nose MRSA Screen - Final Complete 12/02/24 12:45 Sputum Gram Stain - Final Resulted 12/02/24 12:45 Sputum Respiratory Culture - Preliminary Resulted 12/02/24 09:25 Blood Blood Culture - Preliminary NO GROWTH AFTER 24 HOURS OF INCUBATION. Resulted Problem List/Assessment/Plan Problem List/Assessment/Plan #Sepsis likely due to pneumonia gram +/ gram - #Acute hypoxic respiratory failure #Possible community-acquired pneumonia Gram-positive/Gram-negative WBC: 14.7, Tachycardia, Tachypneic. Lactic acid: 5.1, 4.9 ABG Chest xray O2 via NC 3l per min. IV fluids: NS Cultures: blood, urine and sputum IV antibiotics: Ceftriaxone IV and Azitromicyn IV COVID, Influenza test, MRSA swab. UA: negative for UTI #Acute asthma with exacerbation Respiratory therapy: Albuterol MedNeb Q4H Ipatropium medNeb Q4H Solumedrol IV #History of bilateral retinal detachment - residual left eye anopsia #Right eye glaucoma Medication reconciliation Acetazolamide 500mg po bid #Hypovolemia hyponatremia NS IV BMP #Autism. Family is supportive. DVT prophylaxis: Lovenox SC Diet: full liquid diet. Goals of care discussed with the patient for more than 35 minutes: Code Status: Full code PCP: Dr. Hayde Lewis Case discussed with Dr. Roy Case discussed with the patient and family (patient's aunt) Plan discussed with: Patient, Other (Aunt) My Orders My Orders Orders - HAMMAD SHARMA Procedure Category Date Status Time Complete Blood Count LAB 12/04/24 Verified 04:00 Basic Metabolic Panel LAB 12/04/24 Verified 04:00 Acetazolamide Tablet PHA 12/03/24 In Process (Diamox Tablet) 22:00 Date of Service: Dec 03, 2024 Billing Provider: GEOVANNI ROY MD Common Visit Codes: [id number] INP/OBS CARE(HIGH) Date of Service: Dec 03, 2024 Billing Provider: GEOVANNI ROY MD Common Visit Codes: [id number] INP/OBS CARE(HIGH) HAMMAD SHARMA Dec 03, 2024 14:01 GEOVANNI ROY MD Dec 03, 2024 18:11
[2024-12-03] MEDS: acetaZOLAMIDE 250 MG TAB PO SCH (15:06)
[2024-12-03] MEDS ORDERED: acetaZOLAMIDE 250 MG TAB PO SCH (22:00)
[2024-12-04] VITALS (22 sets, daily range): BP systolic 108–125; BP diastolic 66–81; PULSE 56–85; RESP 14–20; TEMP 97.5–98.1; O2SAT 96–100
[2024-12-04 06:10] LABS: Hematocrit 40.1 % (41.0-53.0); Hemoglobin 13.3 g/dL (13.5-17.5); Mean Corpuscular Hemoglobin 30.0 pg (28.0-32.0); Mean Corpuscular Volume 90.6 fL (80.0-100.0); Nucleated Red Blood Cells % 0.1 %
[2024-12-04 06:26] LABS: Anion Gap 9 (5-15); Potassium 4.1 mmol/L (3.5-5.1); Sodium 143 mmol/L (136-145)
[2024-12-04 06:32] LABS: BUN/Creatinine Ratio 12.2 (10.0-20.0); Blood Urea Nitrogen 10 mg/dL (9-23); Glucose 105 mg/dL (74-106)
[2024-12-04 06:36] LABS: Calcium 8.3 mg/dL (8.7-10.4); Carbon Dioxide 20 mmol/L (20-31); Chloride 114 mmol/L (98-107)
--- NOTE | 2024-12-04 10:25 | DVHPNRES ---
Progress Note Date Seen: Dec 04, 2024 Resident Creating Document: HAMMAD SHARMA RESIDENT Has the PT tested + for MRSA If YES, has PT been informed?: No Medical Necessity Reason Pt with a Central, PICC or Fol: No Subjective Review of Systems Mr. 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 The patient came to the ED with chief complain of 2 days of progressive dyspnea associated with fever, chills, wheezing and wet cough with yellowish-sputum. The patient went to the urgent care, were they prescribed Medrol pack and was treated with nebulization and he was sent home. The patient' symptoms did not improved and the dyspnea worsen, this prompted his visit to the ED. The patient is a poor historian the information is obtain from family member (patient's aunt). On further questioning, the patient's aunt reports that the patient had has asthma exacerbations that have required hospitalization and endochatreal intubation. The patient denies hemoptisis, chest pain, abdominal pain, nausea, vomit or other symptoms. In the ED he was tachycardic 130bpm, , tachypneic 24 rpm, O2Sat 91% with audible wheezing. The patient was labs showed elevated lactic acid, a sepsis protocol was started, with empiric antibiotics ceftriaxone 1g IV and Azitromicyn IV. Nebulizations and IV Solumedrol was started. The patient was admitted for further management and assessment. Surgical history: Retinal detachment treatment Family history: Noncontributory Social history: Denies current tobacco, alcohol and other drug abuse Allergies: Denies Hospitalization course: On 12/03/24, the patient was evaluated and assessed at bedside. VS, labs and chart was reviewed. WBC are 14.7, Lactic acid is trending down from 5.1 to 4.9. The patient continues with IV antibiotics ceftriaxone and azithromycin also, he is receiving nebulization. The patient reports feeling out of breath but bit better, patient only gives short answers when questioning. We will continue following this patient progress. On 12/03/24, the patient was evaluated and assessed at bedside. VS, labs and chart was reviewed. WBC are 14.1. The patient continues with IV antibiotics ceftriaxone and azithromycin also, he is receiving nebulization. The patient reports feeling better today. O2 via canula has been reduced to 2L. with O2sat 96%. I spoke with patient mother and update her about his progress, his mother report that his asthma is not well controlled and he only uses rescue albuterol inhaler and montelukast po daily. A pulmonology consult was placed today. We will continue following this patient progress. ROS: patient only gives straights and short answers when questioning. Her mother reports the following: Constitutional: Denies Weight loss. No: Fever, Chills, Sweats, Weakness, Malaise Eyes: No: Pain, Vision change, Conjunctivae inflammation, Eyelid inflammation, Other, Redness ENT: No: Ear pain, Ear discharge, Nose pain, Nose discharge, Nose congestion, Mouth pain, Mouth swelling, Throat pain, Throat swelling Respiratory: shortness of breath and wheezing. Wet Cough. Denies Hemoptysis, Pleuritic Pain, Sputum. Cardiovascular: No Chest Pain; No: Palpitations, Orthopnea, No Edema, Lt Headedness Gastrointestinal: No: Nausea, Vomiting, Abdominal Pain, Diarrhea, Constipation, Melena, Hematochezia Genitourinary: No Dysuria, No Frequency, No Incontinence, No Hematuria, No Retention Musculoskeletal: denies edema or leg swelling Skin: No: Rash, Lesions, Jaundice, Bruising Neurological: No: Weakness, Numbness, Incoordination, Change in speech, Confusion, Seizures Allergies: NO KNOWN ALLERGIES Objective vital signs Vital Sign Date Time Temp Pulse Resp B/P (MAP) Pulse Ox O2 Delivery O2 Flow Rate FiO2 12/04/24 10:10 85 14 100 12/04/24 06:06 Nasal Cannula* 2 28 12/04/24 05:00 97.5 109/66 (80) 97.5 Total Intake and Output 12/03/24 12/03/24 12/04/24 15:00 23:00 07:00 Intake Total 50 ml 500 ml 275 ml Output Total 500 ml 1050 ml Balance 50 ml 0 ml -775 ml medications Current Medications Medications Dose Ordered Sig/Chucky Route Start Time Stop Time Status Last Admin Dose Admin Acetaminophen 325 mg Q4HP PRN PO 12/02/24 11:15 Ondansetron HCl 4 mg Q4HP PRN IV 12/02/24 11:15 Morphine Sulfate 2 mg Q4HPRN PRN IV 12/02/24 11:15 Ceftriaxone Sodium 50 ml @ 100 mls/hr DAILY@09 IV 12/03/24 09:00 12/04/24 09:30 100 MLS/HR Methylprednisolone Sodium Succinate 40 mg BID IV 12/02/24 22:00 12/04/24 09:30 40 MG Enoxaparin Sodium 30 mg DAILY SC 12/03/24 10:00 12/04/24 09:30 30 MG Pantoprazole Sodium 40 mg DAILY IV 12/03/24 10:00 12/04/24 09:30 40 MG Ipratropium [place] 0.5 mg Q4HR NEB 12/02/24 22:00 12/04/24 10:00 0.5 MG Levalbuterol HCl 0.625 mg Q4HR NEB 12/02/24 22:00 12/04/24 10:00 0.625 MG Prednisolone Acetate 1 drop BID RIGHTEYE 12/03/24 10:00 12/03/24 22:02 1 DROP Patient Own Medication 1 DAILY@0900,1400,2200 OP 12/03/24 09:00 12/04/24 09:31 1 Acetazolamide 500 mg Q12HR PO 12/03/24 14:30 12/04/24 09:30 500 MG Azithromycin 250 ml @ 125 mls/hr DAILY IV 12/04/24 10:00 Examination General Appearance: , Alert, Oriented in person, Cooperative, No acute distress. On O2 by NC 2L HEENT: Atraumatic, left eye blindness, Mucous membranes moist/pink Respiratory: Audible wheezing, decreased expansion on both lungs, ronchi and wheezing bilaterally. Cardiovascular: Regular rate, Normal S1, Normal S2, no murmurs. Abdominal: Normal bowel sounds, Soft, no tenderness Extremities: no edema, normal ROM Neuro: Strength at 5/5 X4 ext, Normal tone, Sensation intact Psych/Mental Status: patient with autism but responds to question with straight and short answers. laboratory and microbiology Laboratory Tests 12/04/24 05:11 Test 12/04/24 05:11 Range/Units Serum Glucose 105 74-106 mg/dL Microbiology Date/Time Source Procedure Growth Status 12/02/24 21:56 Nose MRSA Screen - Final Complete 12/02/24 12:45 Sputum Gram Stain - Final Resulted 12/02/24 12:45 Sputum Respiratory Culture - Preliminary Resulted 12/02/24 09:25 Blood Blood Culture - Preliminary NO GROWTH AFTER 48 HOURS OF INCUBATION. Resulted Problem List/Assessment/Plan Problem List/Assessment/Plan #Sepsis likely due to pneumonia gram +/ gram - #Acute hypoxic respiratory failure #Possible community-acquired pneumonia Gram-positive/Gram-negative WBC: 14.7, Tachycardia, Tachypneic. Lactic acid: 5.1, 4.9 ABG Chest xray O2 via NC 3l per min. IV fluids: NS Cultures: blood, urine and sputum IV antibiotics: Ceftriaxone IV and Azitromicyn IV COVID, Influenza test, MRSA swab. UA: negative for UTI #Acute asthma with exacerbation Respiratory therapy: Albuterol MedNeb Q4H Ipatropium medNeb Q4H Solumedrol IV Pulmonology consult #History of bilateral retinal detachment - residual left eye anopsia #Right eye glaucoma Medication reconciliation Acetazolamide 500mg po bid #Hypovolemia hyponatremia NS IV BMP #Autism. Family is supportive. DVT prophylaxis: Lovenox SC Diet: full liquid diet. Goals of care discussed with the patient for more than 35 minutes: Code Status: Full code PCP: Dr. Hayde Lewis Case discussed with Dr. Roy Case discussed with the patient and family (patient's aunt) Plan discussed with: Patient, Other (Mother) My Orders My Orders Orders - HAMMAD SHARMA Procedure Category Date Status Time Acetazolamide Tablet PHA 12/03/24 In Process (Diamox Tablet) 14:30 Electrocardigram EKG 12/03/24 Logged 14:57 Azithromycin 500mg/ PHA 12/04/24 In Process 250ml (Zithromax 50 10:00 Date of Service: Dec 04, 2024 Billing Provider: GEOVANNI ROY MD Common Visit Codes: [id number] INP/OBS CARE(HIGH) HAMMAD SHARMA Dec 04, 2024 10:25 GEOVANNI ROY MD Dec 05, 2024 21:44
[2024-12-04] MEDS: AZITHROMYCIN 500MG/ 250ML 250 ML IV SCH (11:38)
--- NOTE | 2024-12-04 13:42 | ECG ---
[facility] Test Date: 2024-12-03 Test Time: 16:02:16 Pat Name: GLENDA CORRAL Department: Respiratoy Room: 0221T B Gender: M Chemical Laboratory Scientist: EARLENE TAYLOR : 1995 Requested By: HAMMAD SHARMA Order Number: [id number] Reading MD: Abraham Granda Measurements Intervals [place] Rate: 76 P: 76 VA: 139 QRS: 121 QRSD: 105 T: 68 QT: 379 QTc: 427 Interpretive Statements Sinus rhythm Lateral infarct, old Electronically Signed On 12-11-2024 12:47:17 PST by Abraham Granda Please click the below link to view image of tracing.
--- NOTE | 2024-12-04 23:52 | DVHINCON2 ---
Date of service: Dec 03, [address] Rodriguez Reason for Consultation Acute hypoxic respiratory failure, asthma exacerbation. History of Present Illness A 29-year-old man with significant past medical history of asthma requiring hospitalization and endotracheal intubation, and bilateral retinal detachment who presented to ED on 12/02/24 with complaint of progressive dyspnea from Functional Class II to Functional Class IV which started two days before his admission, associated with productive cough with clear sputum and fever. Elizabeth vasquez was evaluated at urgent care one day prior, where he was given Medrol Lj and nebulizer treatment with diagnosis of asthma exacerbation. Due to ongoing symptoms and refractory response to Medrol pack, patient decided to present to the ED for further evaluation. In the ED he was desaturating, with audible wheezing, indicating IV methylprednisolone, IV magnesium and bronchodilator treatment. Patient presented with vital signs and laboratory findings compatible with sepsis, indicating empiric IV antibiotic (ceftriaxone, azithromycin). Patient was admitted for further care. Pulmonary consultation is requested for evaluation and management of acute hypoxic respiratory failure and asthma exacerbation. Review of Systems: 14-point review of systems negative unless otherwise noted above. Past Medical History: Asthma. Of note, pt has been hospitalized previously due to asthma crisis with requirement of endotracheal intubation (last one one year ago).. Bilateral retinal detachment with successful treatment to right eye (currently legally blind from left eye) with residual right-sided glaucoma due to oil treatment. Past Surgical History: Retinal detachment treatment Medications: Reviewed. Allergies: No known drug allergies. Family History: No family history of premature CAD. No family history of lung disorders. Social History: Nonsmoker. No alcohol or illicit drug use. Family History: Patient reports no known family medical history. Allergies: Coded Allergies: NO KNOWN ALLERGIES (Unverified , 12/01/24) Home Meds Active Scripts Albuterol Sulfate (Albuterol Sulfate Hfa) 108 Mcg/Act Aer, 108 MCG IN TID, #100 AER Prov:YOHANA MARTINEZ 12/01/24 Methylprednisolone (Medrol Dosepak) 4 Mg Lj, 4 MG PO UD, #21 TAB UAD Prov:YOHANA MARTINEZ 12/01/24 Reported Medications Patients Own Medication (PATIENTS OWN MEDICATION) . PTS OWN MED-OBTAIN FROM PT AND SEND TO RX DRUG: FREQ: RX# EXP: DATE DISP: TECH: RPH: 12/02/24 Prednisolone Acetate (Ophth) (Pred Forte) 1 % [place], 1 % OP BID, ML 12/02/24 Acetazolamide (Acetazolamide) 500 Mg Cap, 500 MG PO Q12HR, TAB 12/02/24 Discontinued Reported Medications Brimonidine Tartrate (Brimonidine Tartrate) 0.2 % Beba, 1 DROP RIGHTEYE TID, #10 ML 3 Refills 12/02/24 Current Medications Current Medications Medications (Trade) Dose Ordered Sig/Chucky Route PRN Reason Start Time Stop Time Status Last Admin Azithromycin 250 ml @ 125 mls/hr DAILY IV 12/04/24 10:00 12/04/24 11:38 Vital Signs Vital Signs Date Time Temp Pulse Resp B/P (MAP) Pulse Ox O2 Delivery O2 Flow Rate FiO2 12/04/24 22:25 63 20 99 12/04/24 22:15 Nasal Cannula* 1 24 12/04/24 17:00 98.1 108/67 (81) 98.1 Physical Exam Gen.: Patient lying in bed in no apparent distress. On supplemental oxygen. Head: Normocephalic, atraumatic. Eyes: EOMI/PERRLA. Ears: Normal hearing. Normal anatomy. Neck/trachea: Trachea midline, supple. Nose: Normal external anatomy. Mouth: Moist mucous membranes. Chest: Decreased air entry bilaterally. Wheezing present. No rhonchi. Cardiovascular: Positive S1, positive S2. Regular rate and rhythm. Abdomen: Positive bowel sounds in all 4 quadrants. Soft, non-tender, non- distended. : Deferred. Rectal: Deferred. Skin: Warm, dry. Intact. Extremities: 2+ radial pulses bilaterally. No lower extremity edema. Neuro: Awake, alert, oriented x3. No gross motor or sensory deficits. Cranial nerves II through XII intact. Gait not assessed. Labs/Diagnostic Data Labs Test 12/04/24 05:11 12/03/24 11:29 12/03/24 04:47 12/03/24 04:43 Range/Units White Blood Count 14.1 H 4.4-10.8 10^3/uL Red Blood Count 4.43 L 4.5-5.90 10^6/uL Hemoglobin 13.3 L 13.5-17.5 g/dL Hematocrit 40.1 L 41.0-53.0 % Mean Corpuscular Volume 90.6 80.0-100.0 fL Mean Corpuscular Hemoglobin 30.0 28.0-32.0 pg Mean Corpuscular Hemoglobin Concent 33.1 32.0-36.0 g/dL Red Cell Distribution Width 14.6 H 11.8-14.3 % Platelet Count 278 140-450 10^3/uL Mean Platelet Volume 7.2 6.9-10.8 fL Neutrophils (%) (Auto) 90.1 H 37.0-80.0 % Lymphocytes (%) (Auto) 6.6 L 10.0-50.0 % Monocytes (%) (Auto) 2.8 0.0-12.0 % Eosinophils (%) (Auto) 0.0 0.0-7.0 % Basophils (%) (Auto) 0.5 0.0-2.0 % Neutrophils # (Auto) 12.7 H 1.6-8.6 10 ^3/uL Lymphocytes # (Auto) 0.9 0.4-5.4 10 ^3/uL Monocytes # (Auto) 0.4 0-1.3 10 ^3/uL Eosinophils # (Auto) 0 0-0.8 10 ^3/uL Basophils # (Auto) 0.1 0-0.2 10 ^3/uL Nucleated Red Blood Cells 0.1 % Sodium Level 143 136-145 mmol/L Potassium Level 4.1 3.5-5.1 mmol/L Chloride Level 114 H 98-107 mmol/L Carbon Dioxide Level 20 20-31 mmol/L Anion Gap 9 5-15 Blood Urea Nitrogen 10 9-23 mg/dL Creatinine 0.82 0.700-1.30 mg/dL Glomerular Filtration Rate Calc 123 >90 mL/min BUN/Creatinine Ratio 12.2 10.0-20.0 Serum Glucose 105 74-106 mg/dL Calcium Level 8.3 L 8.7-10.4 mg/dL Lactic Acid Level 1.1 0.4-2.0 mmol/L Total Bilirubin 0.6 0.2-1.0 mg/dL Aspartate Amino Transferase (AST) 18 13-40 U/L Alanine Aminotransferase (ALT) 10 7-40 U/L Alkaline Phosphatase 64 46-116 U/L Total Protein 6.4 5.7-8.2 g/dL Albumin 3.6 3.2-4.8 g/dL Urine Color Light-yellow Yellow Urine Clarity Clear Clear Urine pH 6.0 5.0-9.0 Urine Specific [place] 1.023 1.001-1.035 Urine Protein Negative Negative Urine Ketones Trace Negative Urine Blood Negative Negative /uL Urine Nitrite Negative Negative Urine Bilirubin Negative Negative Urine Urobilinogen Normal Negative mg/dL Urine Leukocyte Esterase Negative Negative /uL Urine RBC <1 0 - 3 /hpf Urine Microscopic WBC < 1 0-3 /HPF Urine Squamous Epithelial Cells None seen <5 /hpf Urine Bacteria None seen None Seen /hpf Urine Mucus Few None Seen Urine Glucose Normal Normal mg/dL Urine Opiates Screen Neg NEGATIVE Urine Fentanyl Screen Neg NEGATIVE Urine Barbiturates Screen Neg NEGATIVE Urine Phencyclidine Screen Neg NEGATIVE Urine Amphetamines Screen Neg NEGATIVE Urine Benzodiazepines Screen Neg NEGATIVE Urine Cocaine Screen Neg NEGATIVE Urine Cannabinoids Screen Neg NEGATIVE Test 12/02/24 11:50 12/02/24 11:34 12/02/24 08:11 Range/Units Blood Gas Specimen Type Arterial Blood Gas Sample Site Left radial Blood Gas Patient Temperature 37.0 Arterial Blood Date Drawn [id number] Arterial Blood pH 7.310 L 7.350-7.450 Arterial Blood Partial Pressure CO2 31.5 L 35.0-48.0 mmHg Arterial Blood Partial Pressure O2 67.6 L 83.0-108.0 mmHg Arterial Blood HCO3 15.5 L 21.0-28.0 mmol/L Arterial Blood Oxygen Saturation 92.9 L 94.0-98.0 % Arterial Blood Base Excess -9.5 L -2.0-3.0 mmol/L Arterial Blood Oxyhemoglobin 92.2 L 94.0-98.0 % Arterial Blood Carboxyhemoglobin 0.2 L 0.5-1.5 % Arterial Blood Methemoglobin 0.6 0.0-1.5 % [place] Test Yes Blood Gas Total Hemoglobin 14.40 13.5-17.5 g/dL Blood Gas Modality Nasal cannula FiO2 % 32.0 Influenza Type A Antigen Negative Negative Influenza Type B Antigen Negative Negative SARS-CoV-2 Antigen (Rapid) Negative NEGATIVE Prothrombin Time 12.1 H 9.3-11.8 sec Prothrombin Time INR 1.16 H 0.9-1.15 Activated Partial Thromboplast Time 31.9 24.5-34.5 SEC Hemoglobin A1c 5.4 <5.7 % A1C Phosphorus Level 4.4 2.4-5.1 mg/dL Magnesium Level 1.9 1.6-2.6 mg/dL Direct Bilirubin 0.2 <0.3 mg/dL C-Reactive Protein High Sensitivity 1.65 H <1.0 mg/dL Triglycerides Level 49 < 150 mg/dL Cholesterol Level 145 < 200 mg/dL LDL Cholesterol 82 < 100 mg/dL HDL Cholesterol 56 40-59 mg/dL Vitamin B12 Level 503 211-911 pg/mL Vitamin D 25-Hydroxy 14.3 L 30.0-100 ng/mL Thyroid Stimulating Hormone (TSH) 2.54 0.55-4.78 uIU/mL Microbiology Date/Time Source Procedure Growth Status 12/03/24 04:43 Voided Urine Urine Culture - Preliminary Resulted 12/02/24 21:56 Nose MRSA Screen - Final Complete 12/02/24 12:45 Sputum Gram Stain - Final Resulted 12/02/24 12:45 Sputum Respiratory Culture - Preliminary Resulted 12/02/24 09:25 Blood Blood Culture - Preliminary NO GROWTH AFTER 48 HOURS OF INCUBATION. Resulted Assessment Impression: Acute hypoxic respiratory failure Asthma exacerbation Atelectasis Wheezing Plan: Supplemental oxygen Titrate to keep O2 sats above 92%. Chest x-ray shows no acute opacities. Continue bronchodilators. Continue antibiotics Antitussive for cough Incentive spirometry Monitor renal function. Monitor electrolytes. Supplement as necessary. Monitor ins and outs. DVT prophylaxis. Prognosis: Poor given patient's multiple co-morbidities. Rest of plan per hospitalist and other consultants. Thank you, Dr. Rodriguez, for allowing me to participate in this patient's care. Further recommendations will depend on the patient's clinical course. Please do not hesitate to contact me if you have any questions or concerns. This medical document was created using an electronic medical record system with [employer] dictation system. Although these documentations are being carefully reviewed, there may still be some phonetic and typographical changes. The errors are purely typographical, due to imperfection on the software program, and do not reflect any compromise in the patient's medical care. Plan discussed with: Other (RN/MD) Visit Coding Pulmonary Billing Provider: DHIRAJ ANTON MD Date of Service if different f: Dec 03, 2024 Common Visit Codes: [id number] INP/OBS CARE (HIGH) DHIRAJ ANTON MD Dec 04, 2024 23:52
--- NOTE | 2024-12-04 23:53 | DVHPN2 ---
Subjective DOS: 12/04/2024 Patient seen and examined at bedside. Remains on supplemental oxygen Overnight events reviewed. Changes from previous H/P or p: No Changes Objective Vitals Vital Signs Date Time Temp Pulse Resp B/P (MAP) Pulse Ox O2 Delivery O2 Flow Rate FiO2 12/04/24 22:25 63 20 99 12/04/24 22:15 Nasal Cannula* 1 24 12/04/24 17:00 98.1 108/67 (81) 98.1 Intake/Output Intake and Output 12/04/24 07:00 Intake Total 825 ml Output Total 1550 ml Balance -725 ml Intake Oral 775 ml IV Total 50 ml Output Urine Total 1550 ml # Voids 3 # Bowel Movements 1 Exam Gen.: Patient lying in bed in no apparent distress. On supplemental oxygen. Head: Normocephalic, atraumatic. Eyes: EOMI/PERRLA. Ears: Normal hearing. Normal anatomy. Neck/trachea: Trachea midline, supple. Nose: Normal external anatomy. Mouth: Moist mucous membranes. Chest: Decreased air entry bilaterally. Wheezing present. No rhonchi. Cardiovascular: Positive S1, positive S2. Regular rate and rhythm. Abdomen: Positive bowel sounds in all 4 quadrants. Soft, non-tender, non- distended. : Deferred. Rectal: Deferred. Skin: Warm, dry. Intact. Extremities: 2+ radial pulses bilaterally. No lower extremity edema. Neuro: Awake, alert, oriented x3. No gross motor or sensory deficits. Cranial nerves II through XII intact. Gait not assessed Medications Current Medications Medications Dose Ordered Sig/[facility] Route Start Time Stop Time Status Last Admin Dose Admin Acetaminophen 325 mg Q4HP PRN PO 12/02/24 11:15 Ondansetron HCl 4 mg Q4HP PRN IV 12/02/24 11:15 Morphine Sulfate 2 mg Q4HPRN PRN IV 12/02/24 11:15 Ceftriaxone Sodium 50 ml @ 100 mls/hr DAILY@09 IV 12/03/24 09:00 12/04/24 09:30 Methylprednisolone Sodium Succinate 40 mg BID IV 12/02/24 22:00 12/04/24 21:36 Enoxaparin Sodium 30 mg DAILY SC 12/03/24 10:00 12/04/24 09:30 Pantoprazole Sodium 40 mg DAILY IV 12/03/24 10:00 12/04/24 09:30 Ipratropium [place] 0.5 mg Q4HR NEB 12/02/24 22:00 12/04/24 22:15 Levalbuterol HCl 0.625 mg Q4HR NEB 12/02/24 22:00 12/04/24 22:15 Prednisolone Acetate 1 drop BID RIGHTEYE 12/03/24 10:00 12/04/24 21:37 Patient Own Medication 1 DAILY@0900,1400,2200 OP 12/03/24 09:00 12/04/24 21:37 Acetazolamide 500 mg Q12HR PO 12/03/24 14:30 12/04/24 21:37 Azithromycin 250 ml @ 125 mls/hr DAILY IV 12/04/24 10:00 12/04/24 11:38 Laboratory Results Laboratory Tests 12/04/24 05:11 Chemistry Test 12/04/24 05:11 Calcium Level 8.3 mg/dL (8.7-10.4) L Urinalysis Test 12/03/24 04:43 Urine Color Light-yellow (Yellow) Urine Clarity Clear (Clear) Urine pH 6.0 (5.0-9.0) Urine Specific [place] 1.023 (1.001-1.035) Urine Protein Negative (Negative) Urine Ketones Trace (Negative) Urine Blood Negative /uL (Negative) Urine Nitrite Negative (Negative) Urine Bilirubin Negative (Negative) Urine Urobilinogen Normal mg/dL (Negative) Urine Leukocyte Esterase Negative /uL (Negative) Urine RBC <1 /hpf (0 - 3) Urine Microscopic WBC < 1 /HPF (0-3) Urine Squamous Epithelial Cells None seen /hpf (<5) Urine Bacteria None seen /hpf (None Seen) Urine Mucus Few (None Seen) Urine Glucose Normal mg/dL (Normal) Microbiology Microbiology Date/Time Source Procedure Growth Status 12/03/24 04:43 Voided Urine Urine Culture - Preliminary Resulted 12/02/24 21:56 Nose MRSA Screen - Final Complete 12/02/24 12:45 Sputum Gram Stain - Final Resulted 12/02/24 12:45 Sputum Respiratory Culture - Preliminary Resulted 12/02/24 09:25 Blood Blood Culture - Preliminary NO GROWTH AFTER 48 HOURS OF INCUBATION. Resulted Assessment/Plan Assessment/Plan Impression: Acute hypoxic respiratory failure Asthma exacerbation Atelectasis Wheezing Events: Remains on supplemental oxygen, 1 LPM NC Taper O2 as tolerated Continue bronchodilators Continue antibiotics WBC of 14.1 K. Antitussive for cough Incentive spirometry Labs and imaging reviewed. Rest of plan as noted below. Plan: Supplemental oxygen Titrate to keep O2 sats above 92%. Chest x-ray shows no acute opacities. Continue bronchodilators. Continue antibiotics Antitussive for cough Incentive spirometry Monitor renal function. Monitor electrolytes. Supplement as necessary. Monitor ins and outs. DVT prophylaxis. Prognosis: Poor given patient's multiple co-morbidities. Rest of plan per hospitalist and other consultants. Thank you, Dr. Rodriguez, for allowing me to participate in this patient's care. Further recommendations will depend on the patient's clinical course. Please do not hesitate to contact me if you have any questions or concerns. This medical document was created using an electronic medical record system with [employer] dictation system. Although these documentations are being carefully reviewed, there may still be some phonetic and typographical changes. The errors are purely typographical, due to imperfection on the software program, and do not reflect any compromise in the patient's medical care. Plan discussed with: Patient, Other (AIDAN Andujar) Visit Coding Pulmonary Billing Provider: DHIRAJ ANTON MD Date of Service if different f: Dec 04, 2024 Common Visit Codes: [id number] INP/OBS CARE(HIGH) DHIRAJ ANTON MD Dec 04, 2024 23:53
[2024-12-05] VITALS (22 sets, daily range): BP systolic 112–134; BP diastolic 66–81; PULSE 61–81; RESP 16–20; TEMP 97.7–98.7; O2SAT 95–100
[2024-12-05 06:06] LABS: Hematocrit 39.9 % (41.0-53.0); Hemoglobin 13.2 g/dL (13.5-17.5); Mean Corpuscular Hemoglobin 29.7 pg (28.0-32.0); Mean Corpuscular Volume 89.9 fL (80.0-100.0); Nucleated Red Blood Cells % 0.0 %
[2024-12-05 06:22] LABS: Potassium 3.9 mmol/L (3.5-5.1); Sodium 143 mmol/L (136-145)
[2024-12-05 06:23] LABS: Anion Gap 10 (5-15); Chloride 113 mmol/L (98-107)
[2024-12-05 06:24] LABS: Calcium 8.3 mg/dL (8.7-10.4); Carbon Dioxide 20 mmol/L (20-31)
[2024-12-05 06:28] LABS: BUN/Creatinine Ratio 8.5 (10.0-20.0)
[2024-12-05 06:30] LABS: Blood Urea Nitrogen 7 mg/dL (9-23); Glucose 114 mg/dL (74-106)
[2024-12-05] MEDS: methylPREDNISolone SOD SUCC 40 MG/ML VL IV SCH (13:35)
[2024-12-05] MEDS: MAGNESIUM SULFATE 1GM/100ML 100 ML IV SCH (13:36)
[2024-12-05] MEDS: MAGNESIUM SULFATE 1GM/100ML 100 ML IV ONE (16:41)
--- NOTE | 2024-12-05 17:21 | DVHPNRES ---
Progress Note Date Seen: Dec 05, 2024 Resident Creating Document: HAMMAD SHARMA RESIDENT Has the PT tested + for MRSA If YES, has PT been informed?: No Medical Necessity Reason Pt with a Central, PICC or Fol: No Subjective Review of Systems Mr. 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 The patient came to the ED with chief complain of 2 days of progressive dyspnea associated with fever, chills, wheezing and wet cough with yellowish-sputum. The patient went to the urgent care, were they prescribed Medrol pack and was treated with nebulization and he was sent home. The patient' symptoms did not improved and the dyspnea worsen, this prompted his visit to the ED. The patient is a poor historian the information is obtain from family member (patient's aunt). On further questioning, the patient's aunt reports that the patient had has asthma exacerbations that have required hospitalization and endochatreal intubation. The patient denies hemoptisis, chest pain, abdominal pain, nausea, vomit or other symptoms. In the ED he was tachycardic 130bpm, , tachypneic 24 rpm, O2Sat 91% with audible wheezing. The patient was labs showed elevated lactic acid, a sepsis protocol was started, with empiric antibiotics ceftriaxone 1g IV and Azithromycin IV. Nebulizations and IV Solumedrol was started. The patient was admitted for further management and assessment. Surgical history: Retinal detachment treatment Family history: Noncontributory Social history: Denies current tobacco, alcohol and other drug abuse Allergies: Denies Hospitalization course: On 12/03/24, the patient was evaluated and assessed at bedside. VS, labs and chart was reviewed. WBC are 14.7, Lactic acid is trending down from 5.1 to 4.9. The patient continues with IV antibiotics ceftriaxone and azithromycin also, he is receiving nebulization. The patient reports feeling out of breath but bit better, patient only gives short answers when questioning. We will continue following this patient progress. On 12/04/24, the patient was evaluated and assessed at bedside. VS, labs and chart was reviewed. WBC are 14.1. The patient continues with IV antibiotics ceftriaxone and azithromycin also, he is receiving nebulization. The patient reports feeling better today. O2 via canula has been reduced to 2L. with O2sat 96%. I spoke with patient mother and update her about his progress, his mother report that his asthma is not well controlled and he only uses rescue albuterol inhaler and montelukast po daily. A pulmonology consult was placed today. We will continue following this patient progress. On 12/05/24, the patient was evaluated and assessed at bedside. VS, labs and chart was reviewed. The patient continues with IV antibiotics ceftriaxone and azithromycin also, he is receiving scheduled nebulizations. The patient reports cough with yellowish sputum. Audible wheezing are still present, the patient is still on O2 via canula. Pulmonology is onboard, magnesium was added. I spoke with patient mother and update her about this patient's progress. We will continue following this patient progress. ROS: patient only gives straights and short answers when questioning. Her mother reports the following: Constitutional: Denies Weight loss. No: Fever, Chills, Sweats, Weakness, Malaise Eyes: No: Pain, Vision change, Conjunctivae inflammation, Eyelid inflammation, Other, Redness ENT: No: Ear pain, Ear discharge, Nose pain, Nose discharge, Nose congestion, Mouth pain, Mouth swelling, Throat pain, Throat swelling Respiratory: shortness of breath and wheezing. Wet Cough. Denies Hemoptysis, Pleuritic Pain, Sputum. Cardiovascular: No Chest Pain; No: Palpitations, Orthopnea, No Edema, Lt Headedness Gastrointestinal: No: Nausea, Vomiting, Abdominal Pain, Diarrhea, Constipation, Melena, Hematochezia Genitourinary: No Dysuria, No Frequency, No Incontinence, No Hematuria, No Retention Musculoskeletal: denies edema or leg swelling Skin: No: Rash, Lesions, Jaundice, Bruising Neurological: No: Weakness, Numbness, Incoordination, Change in speech, Confusion, Seizures Objective vital signs Vital Sign Date Time Temp Pulse Resp B/P (MAP) Pulse Ox O2 Delivery O2 Flow Rate FiO2 12/05/24 14:48 76 16 100 12/05/24 14:40 Nasal Cannula* 1 24 12/05/24 05:00 98.0 112/80 (91) 98.0 Total Intake and Output 12/04/24 12/04/24 12/05/24 15:00 23:00 07:00 Intake Total 1050 ml 740 ml 608 ml Output Total 2017 ml 510 ml Balance 1050 ml -1277 ml 98 ml medications Current Medications Medications Dose Ordered Sig/Chucky Route Start Time Stop Time Status Last Admin Dose Admin Acetaminophen 325 mg Q4HP PRN PO 12/02/24 11:15 Ondansetron HCl 4 mg Q4HP PRN IV 12/02/24 11:15 Morphine Sulfate 2 mg Q4HPRN PRN IV 12/02/24 11:15 Ceftriaxone Sodium 50 ml @ 100 mls/hr DAILY@09 IV 12/03/24 09:00 12/05/24 09:00 100 MLS/HR Enoxaparin Sodium 30 mg DAILY SC 12/03/24 10:00 12/05/24 09:01 30 MG Pantoprazole Sodium 40 mg DAILY IV 12/03/24 10:00 12/05/24 09:00 40 MG Ipratropium [place] 0.5 mg Q4HR NEB 12/02/24 22:00 12/05/24 14:40 0.5 MG Levalbuterol HCl 0.625 mg Q4HR NEB 12/02/24 22:00 12/05/24 14:40 0.625 MG Prednisolone Acetate 1 drop BID RIGHTEYE 12/03/24 10:00 12/05/24 09:02 1 DROP Patient Own Medication 1 DAILY@0900,1400,2200 OP 12/03/24 09:00 12/05/24 13:37 1 Acetazolamide 500 mg Q12HR PO 12/03/24 14:30 12/05/24 09:00 500 MG Azithromycin 250 ml @ 125 mls/hr DAILY IV 12/04/24 10:00 12/05/24 09:00 125 MLS/HR Methylprednisolone Sodium Succinate 40 mg Q8HR IV 12/05/24 14:00 12/05/24 13:35 40 MG Chlorpromazine HCl 25 mg Q8HP PRN PO 12/05/24 11:30 Examination General Appearance: Alert, Oriented in person, Cooperative, No acute distress. On O2 by NC HEENT: Atraumatic, left eye blindness, Mucous membranes moist/pink Respiratory: Audible wheezing, decreased expansion on both lungs, ronchi and wheezing bilaterally. Cardiovascular: Regular rate, Normal S1, Normal S2, no murmurs. Abdominal: Normal bowel sounds, Soft, no tenderness Extremities: no edema, normal ROM Neuro: Strength at 5/5 X4 ext, Normal tone, Sensation intact Psych/Mental Status: patient has autism but responds to question with straight and short answers. laboratory and microbiology Laboratory Tests 12/05/24 05:22 Test 12/05/24 05:22 Range/Units Serum Glucose 114 H 74-106 mg/dL Microbiology Date/Time Source Procedure Growth Status 12/03/24 04:43 Voided Urine Urine Culture - Final Complete 12/02/24 21:56 Nose MRSA Screen - Final Complete 12/02/24 12:45 Sputum Gram Stain - Final Complete 12/02/24 12:45 Sputum Respiratory Culture - Final Complete 12/02/24 09:25 Blood Blood Culture - Preliminary NO GROWTH AFTER 72 HOURS OF INCUBATION. Resulted Problem List/Assessment/Plan Problem List/Assessment/Plan #Sepsis likely due to pneumonia gram +/ gram - #Acute hypoxic respiratory failure #Possible community-acquired pneumonia Gram-positive/Gram-negative WBC: 14.7, Tachycardia, Tachypneic. Lactic acid: 5.1, 4.9 ABG Chest xray O2 via NC 3l per min. IV fluids: NS Cultures: blood, urine and sputum IV antibiotics: Ceftriaxone IV and Azitromicyn IV COVID, Influenza test, MRSA swab. UA: negative for UTI #Acute asthma with exacerbation Respiratory therapy: Albuterol MedNeb Q4H Ipatropium medNeb Q4H Solumedrol 40mg IV TID Pulmonology consult Magnesium #History of bilateral retinal detachment - residual left eye anopsia #Right eye glaucoma Medication reconciliation Acetazolamide 500mg po bid #Hypovolemia hyponatremia NS IV BMP #Autism. Family is supportive. DVT prophylaxis: Lovenox SC Diet: full liquid diet. Goals of care discussed with the patient for more than 35 minutes: Code Status: Full code PCP: Dr. Hayde Lewis Case discussed with Dr. Roy Case discussed with the patient and family (patient's aunt) Plan discussed with: Patient, Other (Mother. ) My Orders My Orders Orders - HAMMAD SHARMA RESIDENT Procedure Category Date Status Time Methylprednisolone PHA 12/05/24 In Process Sod Succ (Solu Medrol 14:00 Chlorpromazine Hcl PHA 12/05/24 In Process Tablet (Thorazine Tab 11:30 Regular Diet DIET 12/05/24 Transmitted Dinner Date of Service: Dec 05, 2024 Billing Provider: GEOVANNI ROY MD Common Visit Codes: [id number] INP/OBS CARE(HIGH) HAMMAD SHARMA RESIDENT Dec 05, 2024 17:21 GEOVANNI ROY MD Dec 05, 2024 21:47
--- NOTE | 2024-12-05 23:01 | DVHPN2 ---
Subjective DOS: 12/05/2024 Patient seen and examined at bedside. Remains on supplemental oxygen Overnight events reviewed. Changes from previous H/P or p: No Changes Objective Vitals Vital Signs Date Time Temp Pulse Resp B/P (MAP) Pulse Ox O2 Delivery O2 Flow Rate FiO2 12/05/24 22:35 63 18 99 12/05/24 22:27 Room Air 12/05/24 22:27 0 21 12/05/24 21:00 97.9 128/81 (97) 97.9 Intake/Output Intake and Output 12/05/24 07:00 Intake Total 2398 ml Output Total 2527 ml Balance -129 ml Intake Oral 1348 ml IV Total 1050 ml Output Urine Total 2525 ml Stool Total 2 ml # Bowel Movements 1 Exam Gen.: Patient lying in bed in no apparent distress. On supplemental oxygen. Head: Normocephalic, atraumatic. Eyes: EOMI/PERRLA. Ears: Normal hearing. Normal anatomy. Neck/trachea: Trachea midline, supple. Nose: Normal external anatomy. Mouth: Moist mucous membranes. Chest: Decreased air entry bilaterally. Wheezing present. No rhonchi. Cardiovascular: Positive S1, positive S2. Regular rate and rhythm. Abdomen: Positive bowel sounds in all 4 quadrants. Soft, non-tender, non- distended. : Deferred. Rectal: Deferred. Skin: Warm, dry. Intact. Extremities: 2+ radial pulses bilaterally. No lower extremity edema. Neuro: Awake, alert, oriented x3. No gross motor or sensory deficits. Cranial nerves II through XII intact. Gait not assessed Medications Current Medications Medications Dose Ordered Sig/[facility] Route Start Time Stop Time Status Last Admin Dose Admin Acetaminophen 325 mg Q4HP PRN PO 12/02/24 11:15 Ondansetron HCl 4 mg Q4HP PRN IV 12/02/24 11:15 Morphine Sulfate 2 mg Q4HPRN PRN IV 12/02/24 11:15 Ceftriaxone Sodium 50 ml @ 100 mls/hr DAILY@09 IV 12/03/24 09:00 12/05/24 09:00 100 MLS/HR Enoxaparin Sodium 30 mg DAILY SC 12/03/24 10:00 12/05/24 09:01 30 MG Pantoprazole Sodium 40 mg DAILY IV 12/03/24 10:00 12/05/24 09:00 40 MG Ipratropium [place] 0.5 mg Q4HR NEB 12/02/24 22:00 12/05/24 22:27 0.5 MG Levalbuterol HCl 0.625 mg Q4HR NEB 12/02/24 22:00 12/05/24 22:27 0.625 MG Prednisolone Acetate 1 drop BID RIGHTEYE 12/03/24 10:00 12/05/24 21:20 1 DROP Patient Own Medication 1 DAILY@0900,1400,2200 OP 12/03/24 09:00 12/05/24 21:20 1 Acetazolamide 500 mg Q12HR PO 12/03/24 14:30 12/05/24 21:20 500 MG Azithromycin 250 ml @ 125 mls/hr DAILY IV 12/04/24 10:00 12/05/24 09:00 125 MLS/HR Methylprednisolone Sodium Succinate 40 mg Q8HR IV 12/05/24 14:00 12/05/24 21:20 40 MG Chlorpromazine HCl 25 mg Q8HP PRN PO 12/05/24 11:30 Laboratory Results Laboratory Tests 12/05/24 05:22 Chemistry Test 12/05/24 05:22 Calcium Level 8.3 mg/dL (8.7-10.4) L Urinalysis Test 12/03/24 04:43 Urine Color Light-yellow (Yellow) Urine Clarity Clear (Clear) Urine pH 6.0 (5.0-9.0) Urine Specific [place] 1.023 (1.001-1.035) Urine Protein Negative (Negative) Urine Ketones Trace (Negative) Urine Blood Negative /uL (Negative) Urine Nitrite Negative (Negative) Urine Bilirubin Negative (Negative) Urine Urobilinogen Normal mg/dL (Negative) Urine Leukocyte Esterase Negative /uL (Negative) Urine RBC <1 /hpf (0 - 3) Urine Microscopic WBC < 1 /HPF (0-3) Urine Squamous Epithelial Cells None seen /hpf (<5) Urine Bacteria None seen /hpf (None Seen) Urine Mucus Few (None Seen) Urine Glucose Normal mg/dL (Normal) Microbiology Microbiology Date/Time Source Procedure Growth Status 12/03/24 04:43 Voided Urine Urine Culture - Final Complete 12/02/24 21:56 Nose MRSA Screen - Final Complete 12/02/24 12:45 Sputum Gram Stain - Final Complete 12/02/24 12:45 Sputum Respiratory Culture - Final Complete 12/02/24 09:25 Blood Blood Culture - Preliminary NO GROWTH AFTER 72 HOURS OF INCUBATION. Resulted Assessment/Plan Assessment/Plan Impression: Acute hypoxic respiratory failure Asthma exacerbation Atelectasis Wheezing Events: Remains on supplemental oxygen, 1 LPM NC Taper O2 as tolerated Patient is feeling better, listening to music on the laptop. Continue bronchodilators Continue antibiotics WBC of 14.1 K. Antitussive for cough On IV steroids Incentive spirometry Magnesium supplemented Monitor renal function. Monitor electrolytes. Supplement as necessary Labs and imaging reviewed. Rest of plan as noted below. Plan: Supplemental oxygen Titrate to keep O2 sats above 92%. Chest x-ray shows no acute opacities. Continue bronchodilators. Continue antibiotics Antitussive for cough Incentive spirometry Monitor renal function. Monitor electrolytes. Supplement as necessary. Monitor ins and outs. DVT prophylaxis. Prognosis: Guarded given patient's multiple co-morbidities. Rest of plan per hospitalist and other consultants. Thank you, Dr. Rodriguez, for allowing me to participate in this patient's care. Further recommendations will depend on the patient's clinical course. Please do not hesitate to contact me if you have any questions or concerns. This medical document was created using an electronic medical record system with [employer] dictation system. Although these documentations are being carefully reviewed, there may still be some phonetic and typographical changes. The errors are purely typographical, due to imperfection on the software program, and do not reflect any compromise in the patient's medical care. Plan discussed with: Patient, Other (AIDAN Pierce) Visit Coding Pulmonary Billing Provider: DHIRAJ ANTON MD Date of Service if different f: Dec 05, 2024 Common Visit Codes: [id number] INP/OBS CARE(HIGH) DHIRAJ ANTON MD Dec 05, 2024 23:01
[2024-12-06] VITALS (21 sets, daily range): BP systolic 113–127; BP diastolic 62–76; PULSE 64–112; RESP 17–20; TEMP 97.7–98.7; O2SAT 94–100
[2024-12-06 06:15] LABS: Hematocrit 41.3 % (41.0-53.0); Hemoglobin 13.6 g/dL (13.5-17.5); Mean Corpuscular Hemoglobin 29.7 pg (28.0-32.0); Mean Corpuscular Volume 90.2 fL (80.0-100.0); Nucleated Red Blood Cells % 0.2 %
[2024-12-06 06:25] LABS: Potassium 4.0 mmol/L (3.5-5.1); Sodium 145 mmol/L (136-145)
[2024-12-06 06:26] LABS: Anion Gap 11 (5-15)
[2024-12-06 06:27] LABS: Calcium 8.6 mg/dL (8.7-10.4); Carbon Dioxide 20 mmol/L (20-31); Chloride 114 mmol/L (98-107)
[2024-12-06 06:31] LABS: BUN/Creatinine Ratio 13.2 (10.0-20.0); Blood Urea Nitrogen 10 mg/dL (9-23)
[2024-12-06 06:33] LABS: Glucose 132 mg/dL (74-106)
--- NOTE | 2024-12-06 07:26 | ECG ---
[facility] Test Date: 2024-12-03 Test Time: 16:01:10 Pat Name: GLENDA CORRAL Department: Respiratoy Room: 0221T B Gender: M Japanese Interpreter: EARLENE TAYLOR : 1995 Requested By: HAMMAD SHARMA Order Number: [id number] Reading MD: Abraham Granda Measurements Intervals [place] Rate: 77 P: 75 [place]: 142 QRS: 119 QRSD: 104 T: 67 QT: 380 QTc: 431 Interpretive Statements Sinus rhythm Atrial premature complex Right axis deviation Electronically Signed On 12-11-2024 12:47:15 PST by Abraham Granda Please click the below link to view image of tracing.
[2024-12-06] MEDS: ALBUTEROL SULF 2.5 MG/0.5ML(0.5%) NEB SOLN ONE (09:53)
[2024-12-07] VITALS (13 sets, daily range): BP systolic 133–159; BP diastolic 74–83; PULSE 64–106; RESP 18–24; TEMP 36.7; O2SAT 95–100
[2024-12-07 06:38] LABS: Hematocrit 39.6 % (41.0-53.0); Hemoglobin 13.3 g/dL (13.5-17.5); Mean Corpuscular Hemoglobin 30.3 pg (28.0-32.0); Mean Corpuscular Volume 90.2 fL (80.0-100.0); Nucleated Red Blood Cells % 0.1 %
[2024-12-07 07:25] LABS: Anion Gap 13 (5-15); Calcium 8.4 mg/dL (8.7-10.4); Carbon Dioxide 18 mmol/L (20-31); Chloride 115 mmol/L (98-107); Potassium 3.6 mmol/L (3.5-5.1); Sodium 146 mmol/L (136-145)
[2024-12-07 07:29] LABS: BUN/Creatinine Ratio 11.8 (10.0-20.0); Blood Urea Nitrogen 10 mg/dL (9-23)
[2024-12-07 07:30] LABS: Glucose 123 mg/dL (74-106)
[2024-12-07] MEDS: ALBUTEROL SULF 2.5 MG/0.5ML(0.5%) NEB SOLN NEB ONE (09:56)
[2024-12-07] MEDS ORDERED: BUDE1AER5 IN (10:29)
[2024-12-07] MEDS ORDERED: PRED20TA2 PO (10:29)
[2024-12-07] MEDS ORDERED: AZIT500T66 PO (10:29)
--- NOTE | 2024-12-07 11:25 | DVHPNRES ---
Progress Note Date Seen: Dec 06, 2024 Resident Creating Document: HAMMAD SHARMA RESIDENT Has the PT tested + for MRSA If YES, has PT been informed?: No Medical Necessity Reason Pt with a Central, PICC or Fol: No Subjective Review of Systems Mr. 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 The patient came to the ED with chief complain of 2 days of progressive dyspnea associated with fever, chills, wheezing and wet cough with yellowish-sputum. The patient went to the urgent care, were they prescribed Medrol pack and was treated with nebulization and he was sent home. The patient' symptoms did not improved and the dyspnea worsen, this prompted his visit to the ED. The patient is a poor historian the information is obtain from family member (patient's aunt). On further questioning, the patient's aunt reports that the patient had has asthma exacerbations that have required hospitalization and endochatreal intubation. The patient denies hemoptisis, chest pain, abdominal pain, nausea, vomit or other symptoms. In the ED he was tachycardic 130bpm, , tachypneic 24 rpm, O2Sat 91% with audible wheezing. The patient was labs showed elevated lactic acid, a sepsis protocol was started, with empiric antibiotics ceftriaxone 1g IV and Azithromycin IV. Nebulizations and IV Solumedrol was started. The patient was admitted for further management and assessment. Surgical history: Retinal detachment treatment Family history: Noncontributory Social history: Denies current tobacco, alcohol and other drug abuse Allergies: Denies Hospitalization course: On 12/03/24, the patient was evaluated and assessed at bedside. VS, labs and chart was reviewed. WBC are 14.7, Lactic acid is trending down from 5.1 to 4.9. The patient continues with IV antibiotics ceftriaxone and azithromycin also, he is receiving nebulization. The patient reports feeling out of breath but bit better, patient only gives short answers when questioning. We will continue following this patient progress. On 12/04/24, the patient was evaluated and assessed at bedside. VS, labs and chart was reviewed. WBC are 14.1. The patient continues with IV antibiotics ceftriaxone and azithromycin also, he is receiving nebulization. The patient reports feeling better today. O2 via canula has been reduced to 2L. with O2sat 96%. I spoke with patient mother and update her about his progress, his mother report that his asthma is not well controlled and he only uses rescue albuterol inhaler and montelukast po daily. A pulmonology consult was placed today. We will continue following this patient progress. On 12/05/24, the patient was evaluated and assessed at bedside. VS, labs and chart was reviewed. The patient continues with IV antibiotics ceftriaxone and azithromycin also, he is receiving scheduled nebulizations. The patient reports cough with yellowish sputum. Audible wheezing are still present, the patient is still on O2 via canula. Pulmonology is onboard, magnesium was added. I spoke with patient mother and update her about this patient's progress. We will continue following this patient progress. On 12/06/24, the patient was evaluated and assessed at bedside. VS, labs and chart was reviewed. The patient continues with IV antibiotics ceftriaxone and azithromycin also, he is receiving scheduled nebulizations with levalbuterol and ipatropium. Also receiving methylprednisolone TID. The patient reports wet cough with yellowish sputum. Preliminary sputum cultures showed: Many White Blood Cells, Many Gram Positive Cocci in pairs, Many Gram Positive Rods, Many Gram Negative Rods. Audible wheezing are still present, the patient is still on O2 via canula. Pulmonology is onboard, continues medneb were ordered. I spoke with patient mother and update her about this patient's progress. We will continue following this patient progress. ROS: patient only gives straights and short answers when questioning. Her mother reports the following: Constitutional: Denies Weight loss. No: Fever, Chills, Sweats, Weakness, Malaise Eyes: No: Pain, Vision change, Conjunctivae inflammation, Eyelid inflammation, Other, Redness ENT: No: Ear pain, Ear discharge, Nose pain, Nose discharge, Nose congestion, Mouth pain, Mouth swelling, Throat pain, Throat swelling Respiratory: shortness of breath and wheezing. Wet Cough. Denies Hemoptysis, Pleuritic Pain, Sputum. Cardiovascular: No Chest Pain; No: Palpitations, Orthopnea, No Edema, Lt Headedness Gastrointestinal: No: Nausea, Vomiting, Abdominal Pain, Diarrhea, Constipation, Melena, Hematochezia Genitourinary: No Dysuria, No Frequency, No Incontinence, No Hematuria, No Retention Musculoskeletal: denies edema or leg swelling Skin: No: Rash, Lesions, Jaundice, Bruising Neurological: No: Weakness, Numbness, Incoordination, Change in speech, Confusion, Seizures Objective vital signs Vital Sign Date Time Temp Pulse Resp B/P (MAP) Pulse Ox O2 Delivery O2 Flow Rate FiO2 12/06/24 18:36 90 18 99 12/06/24 18:30 Room Air 0.0 12/06/24 18:30 21 12/06/24 16:32 98.3 115/69 (84) 98.3 Total Intake and Output 12/05/24 12/05/24 12/06/24 15:00 23:00 07:00 Intake Total 2300 ml 1540 ml Balance 2300 ml 1540 ml medications Current Medications Medications Dose Ordered Sig/Chucky Route Start Time Stop Time Status Last Admin Dose Admin Acetaminophen 325 mg Q4HP PRN PO 12/02/24 11:15 Ondansetron HCl 4 mg Q4HP PRN IV 12/02/24 11:15 Morphine Sulfate 2 mg Q4HPRN PRN IV 12/02/24 11:15 Ceftriaxone Sodium 50 ml @ 100 mls/hr DAILY@09 IV 12/03/24 09:00 12/06/24 09:37 100 MLS/HR Enoxaparin Sodium 30 mg DAILY SC 12/03/24 10:00 12/06/24 09:38 30 MG Pantoprazole Sodium 40 mg DAILY IV 12/03/24 10:00 12/06/24 09:37 40 MG Ipratropium [place] 0.5 mg Q4HR NEB 12/02/24 22:00 12/06/24 18:30 0.5 MG Levalbuterol HCl 0.625 mg Q4HR NEB 12/02/24 22:00 12/06/24 18:30 0.625 MG Prednisolone Acetate 1 drop BID RIGHTEYE 12/03/24 10:00 12/06/24 11:26 1 DROP Patient Own Medication 1 DAILY@0900,1400,2200 OP 12/03/24 09:00 12/06/24 17:15 1 Acetazolamide 500 mg Q12HR PO 12/03/24 14:30 12/06/24 09:38 500 MG Azithromycin 250 ml @ 125 mls/hr DAILY IV 12/04/24 10:00 12/06/24 11:26 125 MLS/HR Methylprednisolone Sodium Succinate 40 mg Q8HR IV 12/05/24 14:00 12/06/24 17:14 40 MG Chlorpromazine HCl 25 mg Q8HP PRN PO 12/05/24 11:30 Examination General Appearance: Alert, Oriented in person, Cooperative, No acute distress. On O2 by NC. HEENT: Atraumatic, left eye blindness, Mucous membranes moist/pink Respiratory: Audible wheezing, decreased expansion on both lungs, ronchi and wheezing bilaterally. Cardiovascular: Regular rate, Normal S1, Normal S2, no murmurs. Abdominal: Normal bowel sounds, Soft, no tenderness Extremities: no edema, normal ROM Neuro: Strength at 5/5 X4 ext, Normal tone, Sensation intact Psych/Mental Status: patient has autism but responds to question with straight and short answers. laboratory and microbiology Laboratory Tests 12/06/24 05:14 Test 12/06/24 05:14 Range/Units Serum Glucose 132 H 74-106 mg/dL Microbiology Date/Time Source Procedure Growth Status 12/03/24 04:43 Voided Urine Urine Culture - Final Complete 12/02/24 21:56 Nose MRSA Screen - Final Complete 12/02/24 12:45 Sputum Gram Stain - Final Complete 12/02/24 12:45 Sputum Respiratory Culture - Final Complete 12/02/24 09:25 Blood Blood Culture - Preliminary NO GROWTH AFTER 72 HOURS OF INCUBATION. Resulted Problem List/Assessment/Plan Problem List/Assessment/Plan #Sepsis likely due to acute pneumonia gram +/ gram - #Acute hypoxic respiratory failure #Possible acute community-acquired pneumonia Gram-positive/Gram-negative WBC: 14.7, Tachycardia, Tachypneic. Lactic acid: 5.1, 4.9 ABG Chest xray: O2 via NC 3l per min. IV fluids: NS Cultures: blood, urine and sputum IV antibiotics: Ceftriaxone IV and Azitromicyn IV COVID, Influenza test negative, MRSA swab negativc UA: negative for UTI #Acute on chronic asthma with exacerbation Respiratory therapy: Albuterol MedNeb Q4H Ipatropium medNeb Q4H Solumedrol 40mg IV TID Pulmonology consult: Medneb, IV Magnesium #History of bilateral retinal detachment - residual left eye anopsia #Right eye glaucoma Medication reconciliation Acetazolamide 500mg po bid #Hypovolemia hyponatremia NS IV BMP #Autism spectrum. Family is supportive. DVT prophylaxis: Lovenox SC Diet: full liquid diet. Goals of care discussed with the patient for more than 35 minutes: Code Status: Full code PCP: Dr. Hayde Lewis Case discussed with Dr. Roy Case discussed with the patient and family (patient's Mother) Plan discussed with: Patient, Other (Mother) Dietary Evaluation Review Comments: 1) Add 2g Na restriction 2) Initiate Ensure High Protein - encourage optimal PO intake 3) Follow-up with cardiology and pulmonology 4) Continue to monitor I&O, labs, and skin integrity Expected Outcomes/Goals: 1) appetite and labs to improve 2) f/u in 3-5 days Date of Service: Dec 06, 2024 Billing Provider: GEOVANNI ROY MD Common Visit Codes: [id number] INP/OBS CARE(HIGH) HAMMAD SHARMA RESIDENT Dec 06, 2024 19:31 GEOVANNI ROY MD Dec 06, 2024 22:46
--- NOTE | 2024-12-07 11:28 | DVHPN2 ---
Subjective DOS: 12/06/2024 Patient seen and examined at bedside. Currently on room air. Overnight events reviewed. Changes from previous H/P or p: No Changes Objective Vitals Vital Signs Date Time Temp Pulse Resp B/P (MAP) Pulse Ox O2 Delivery O2 Flow Rate FiO2 12/06/24 21:31 101 18 100 12/06/24 21:25 Room Air 0.0 12/06/24 21:25 21 12/06/24 21:04 98.0 118/62 (80) 98.0 Intake/Output Intake and Output 12/06/24 07:00 Intake Total 3840 ml Balance 3840 ml Intake Oral 3840 ml # Voids 7 # Bowel Movements 1 Exam Gen.: Patient lying in bed in no apparent distress. On room air. Head: Normocephalic, atraumatic. Eyes: EOMI/PERRLA. Ears: Normal hearing. Normal anatomy. Neck/trachea: Trachea midline, supple. Nose: Normal external anatomy. Mouth: Moist mucous membranes. Chest: Decreased air entry bilaterally. Wheezing present. No rhonchi. Cardiovascular: Positive S1, positive S2. Regular rate and rhythm. Abdomen: Positive bowel sounds in all 4 quadrants. Soft, non-tender, non- distended. : Deferred. Rectal: Deferred. Skin: Warm, dry. Intact. Extremities: 2+ radial pulses bilaterally. No lower extremity edema. Neuro: Awake, alert, oriented x3. No gross motor or sensory deficits. Cranial nerves II through XII intact. Gait not assessed Medications Current Medications Medications Dose Ordered Sig/Chucky Route Start Time Stop Time Status Last Admin Dose Admin Acetaminophen 325 mg Q4HP PRN PO 12/02/24 11:15 Ondansetron HCl 4 mg Q4HP PRN IV 12/02/24 11:15 Morphine Sulfate 2 mg Q4HPRN PRN IV 12/02/24 11:15 Ceftriaxone Sodium 50 ml @ 100 mls/hr DAILY@09 IV 12/03/24 09:00 12/06/24 09:37 100 MLS/HR Enoxaparin Sodium 30 mg DAILY SC 12/03/24 10:00 12/06/24 09:38 30 MG Pantoprazole Sodium 40 mg DAILY IV 12/03/24 10:00 12/06/24 09:37 40 MG Ipratropium [place] 0.5 mg Q4HR NEB 12/02/24 22:00 12/06/24 21:25 0.5 MG Levalbuterol HCl 0.625 mg Q4HR NEB 12/02/24 22:00 12/06/24 21:25 0.625 MG Prednisolone Acetate 1 drop BID RIGHTEYE 12/03/24 10:00 12/06/24 22:08 1 DROP Patient Own Medication 1 DAILY@0900,1400,2200 OP 12/03/24 09:00 12/06/24 22:08 1 Acetazolamide 500 mg Q12HR PO 12/03/24 14:30 12/06/24 22:08 500 MG Azithromycin 250 ml @ 125 mls/hr DAILY IV 12/04/24 10:00 12/06/24 11:26 125 MLS/HR Methylprednisolone Sodium Succinate 40 mg Q8HR IV 12/05/24 14:00 12/06/24 22:08 40 MG Chlorpromazine HCl 25 mg Q8HP PRN PO 12/05/24 11:30 Laboratory Results Laboratory Tests 12/06/24 05:14 Chemistry Test 12/06/24 05:14 Calcium Level 8.6 mg/dL (8.7-10.4) L Urinalysis Test 12/03/24 04:43 Urine Color Light-yellow (Yellow) Urine Clarity Clear (Clear) Urine pH 6.0 (5.0-9.0) Urine Specific [place] 1.023 (1.001-1.035) Urine Protein Negative (Negative) Urine Ketones Trace (Negative) Urine Blood Negative /uL (Negative) Urine Nitrite Negative (Negative) Urine Bilirubin Negative (Negative) Urine Urobilinogen Normal mg/dL (Negative) Urine Leukocyte Esterase Negative /uL (Negative) Urine RBC <1 /hpf (0 - 3) Urine Microscopic WBC < 1 /HPF (0-3) Urine Squamous Epithelial Cells None seen /hpf (<5) Urine Bacteria None seen /hpf (None Seen) Urine Mucus Few (None Seen) Urine Glucose Normal mg/dL (Normal) Microbiology Microbiology Date/Time Source Procedure Growth Status 12/03/24 04:43 Voided Urine Urine Culture - Final Complete 12/02/24 21:56 Nose MRSA Screen - Final Complete 12/02/24 12:45 Sputum Gram Stain - Final Complete 12/02/24 12:45 Sputum Respiratory Culture - Final Complete 12/02/24 09:25 Blood Blood Culture - Preliminary NO GROWTH AFTER 72 HOURS OF INCUBATION. Resulted Assessment/Plan Assessment/Plan Impression: Acute hypoxic respiratory failure Asthma exacerbation Atelectasis Wheezing Events: Currently on room air. No distress. Patient is feeling better. No acute overnight events. Continue bronchodilators Continue antibiotics WBC trended up to 16.1 K. Antitussive PRN cough On IV steroids Incentive spirometry Labs and imaging reviewed. Rest of plan as noted below. Plan: Supplemental oxygen PRN Titrate to keep O2 sats above 92%. Chest x-ray on 12/02/24 shows no acute opacities. Continue bronchodilators. Continue antibiotics Antitussive for cough Incentive spirometry Monitor renal function. Monitor electrolytes. Supplement as necessary. Monitor ins and outs. DVT prophylaxis. Prognosis: Guarded given patient's multiple co-morbidities. Rest of plan per hospitalist and other consultants. Thank you, Dr. Rodriguez, for allowing me to participate in this patient's care. Further recommendations will depend on the patient's clinical course. Please do not hesitate to contact me if you have any questions or concerns. This medical document was created using an electronic medical record system with [employer] dictation system. Although these documentations are being carefully reviewed, there may still be some phonetic and typographical changes. The errors are purely typographical, due to imperfection on the software program, and do not reflect any compromise in the patient's medical care. Plan discussed with: Patient, Other (AIDAN Beyer) Visit Coding Pulmonary Billing Provider: DHIRAJ ANTON MD Date of Service if different f: Dec 06, 2024 Common Visit Codes: [id number] INP/OBS CARE(HIGH) DHIRAJ ANTON MD Dec 06, 2024 23:08
--- NOTE | 2024-12-07 11:44 | DVHDSRES ---
Discharge Summary Date of Admission Resident Creating Document: HAMMAD SHARMA RESIDENT Dec 02, 2024 at 11:06 Date of Discharge: Dec 07, 2024 Admitting Diagnosis #Sepsis due to acute community acquired pneumonia gram +/- #Acute hypoxic respiratory failure #Acute on chronic asthma exacerbation Labs/Diagnostic Data: Laboratory Results Test 12/07/24 05:30 12/03/24 11:29 12/03/24 04:47 12/03/24 04:43 White Blood Count 19.1 10^3/uL (4.4-10.8) Red Blood Count 4.39 10^6/uL (4.5-5.90) Hemoglobin 13.3 g/dL (13.5-17.5) Hematocrit 39.6 % (41.0-53.0) Mean Corpuscular Volume 90.2 fL (80.0-100.0) Mean Corpuscular Hemoglobin 30.3 pg (28.0-32.0) Mean Corpuscular Hemoglobin Concent 33.6 g/dL (32.0-36.0) Red Cell Distribution Width 14.7 % (11.8-14.3) Platelet Count 340 10^3/uL (140-450) Mean Platelet Volume 7.0 fL (6.9-10.8) Neutrophils (%) (Auto) 90.1 % (37.0-80.0) Lymphocytes (%) (Auto) 3.9 % (10.0-50.0) Monocytes (%) (Auto) 5.2 % (0.0-12.0) Eosinophils (%) (Auto) 0.0 % (0.0-7.0) Basophils (%) (Auto) 0.8 % (0.0-2.0) Neutrophils # (Auto) 17.2 10 ^3/uL (1.6-8.6) Lymphocytes # (Auto) 0.7 10 ^3/uL (0.4-5.4) Monocytes # (Auto) 1.0 10 ^3/uL (0-1.3) Eosinophils # (Auto) 0 10 ^3/uL (0-0.8) Basophils # (Auto) 0.2 10 ^3/uL (0-0.2) Nucleated Red Blood Cells 0.1 % Sodium Level 146 mmol/L (136-145) Potassium Level 3.6 mmol/L (3.5-5.1) Chloride Level 115 mmol/L (98-107) Carbon Dioxide Level 18 mmol/L (20-31) Anion Gap 13 (5-15) Blood Urea Nitrogen 10 mg/dL (9-23) Creatinine 0.85 mg/dL (0.700-1.30) Glomerular Filtration Rate Calc 122 mL/min (>90) BUN/Creatinine Ratio 11.8 (10.0-20.0) Serum Glucose 123 mg/dL (74-106) Calcium Level 8.4 mg/dL (8.7-10.4) Lactic Acid Level 1.1 mmol/L (0.4-2.0) Total Bilirubin 0.6 mg/dL (0.2-1.0) Aspartate Amino Transferase (AST) 18 U/L (13-40) Alanine Aminotransferase (ALT) 10 U/L (7-40) Alkaline Phosphatase 64 U/L (46-116) Total Protein 6.4 g/dL (5.7-8.2) Albumin 3.6 g/dL (3.2-4.8) Urine Color Light-yellow (Yellow) Urine Clarity Clear (Clear) Urine pH 6.0 (5.0-9.0) Urine Specific [place] 1.023 (1.001-1.035) Urine Protein Negative (Negative) Urine Ketones Trace (Negative) Urine Blood Negative /uL (Negative) Urine Nitrite Negative (Negative) Urine Bilirubin Negative (Negative) Urine Urobilinogen Normal mg/dL (Negative) Urine Leukocyte Esterase Negative /uL (Negative) Urine RBC <1 /hpf (0 - 3) Urine Microscopic WBC < 1 /HPF (0-3) Urine Squamous Epithelial Cells None seen /hpf (<5) Urine Bacteria None seen /hpf (None Seen) Urine Mucus Few (None Seen) Urine Glucose Normal mg/dL (Normal) Urine Opiates Screen Neg (NEGATIVE) Urine Fentanyl Screen Neg (NEGATIVE) Urine Barbiturates Screen Neg (NEGATIVE) Urine Phencyclidine Screen Neg (NEGATIVE) Urine Amphetamines Screen Neg (NEGATIVE) Urine Benzodiazepines Screen Neg (NEGATIVE) Urine Cocaine Screen Neg (NEGATIVE) Urine Cannabinoids Screen Neg (NEGATIVE) Test 12/02/24 11:50 12/02/24 11:34 12/02/24 08:11 Blood Gas Specimen Type Arterial Blood Gas Sample Site Left radial Blood Gas Patient Temperature 37.0 Arterial Blood Date Drawn [id number] Arterial Blood pH 7.310 (7.350-7.450) Arterial Blood Partial Pressure CO2 31.5 mmHg (35.0-48.0) Arterial Blood Partial Pressure O2 67.6 mmHg (83.0-108.0) Arterial Blood HCO3 15.5 mmol/L (21.0-28.0) Arterial Blood Oxygen Saturation 92.9 % (94.0-98.0) Arterial Blood Base Excess -9.5 mmol/L (-2.0-3.0) Arterial Blood Oxyhemoglobin 92.2 % (94.0-98.0) Arterial Blood Carboxyhemoglobin 0.2 % (0.5-1.5) Arterial Blood Methemoglobin 0.6 % (0.0-1.5) [place] Test Yes Blood Gas Total Hemoglobin 14.40 g/dL (13.5-17.5) Blood Gas Modality Nasal cannula FiO2 % 32.0 Influenza Type A Antigen Negative (Negative) Influenza Type B Antigen Negative (Negative) SARS-CoV-2 Antigen (Rapid) Negative (NEGATIVE) Prothrombin Time 12.1 sec (9.3-11.8) Prothrombin Time INR 1.16 (0.9-1.15) Activated Partial Thromboplast Time 31.9 SEC (24.5-34.5) Hemoglobin A1c 5.4 % A1C (<5.7) Phosphorus Level 4.4 mg/dL (2.4-5.1) Magnesium Level 1.9 mg/dL (1.6-2.6) Direct Bilirubin 0.2 mg/dL (<0.3) C-Reactive Protein High Sensitivity 1.65 mg/dL (<1.0) Triglycerides Level 49 mg/dL (< 150) Cholesterol Level 145 mg/dL (< 200) LDL Cholesterol 82 mg/dL (< 100) HDL Cholesterol 56 mg/dL (40-59) Vitamin B12 Level 503 pg/mL (211-911) Vitamin D 25-Hydroxy 14.3 ng/mL (30.0-100) Thyroid Stimulating Hormone (TSH) 2.54 uIU/mL (0.55-4.78) Other Laboratory Tests 12/07/24 05:30 Brief Hx & Hospital Course: Mr. 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 The patient came to the ED with chief complain of 2 days of progressive dyspnea associated with fever, chills, wheezing and wet cough with yellowish-sputum. The patient went to the urgent care, were they prescribed Medrol pack and was treated with nebulization and he was sent home. The patient' symptoms did not improved and the dyspnea worsen, this prompted his visit to the ED. The patient is a poor historian the information is obtain from family member (patient's aunt). On further questioning, the patient's aunt reports that the patient had has asthma exacerbations that have required hospitalization and endochatreal intubation. The patient denies hemoptisis, chest pain, abdominal pain, nausea, vomit or other symptoms. In the ED he was tachycardic 130bpm, , tachypneic 24 rpm, O2Sat 91% with audible wheezing. The patient was labs showed elevated lactic acid, a sepsis protocol was started, with empiric antibiotics ceftriaxone 1g IV and Azithromycin IV. Nebulizations and IV Solumedrol was started. The patient was admitted for further management and assessment. Surgical history: Retinal detachment treatment Family history: Noncontributory Social history: Denies current tobacco, alcohol and other drug abuse Allergies: Denies Hospitalization course: On 12/03/24, the patient was evaluated and assessed at bedside. VS, labs and chart was reviewed. WBC are 14.7, Lactic acid is trending down from 5.1 to 4.9. The patient continues with IV antibiotics ceftriaxone and azithromycin also, he is receiving nebulization. The patient reports feeling out of breath but bit better, patient only gives short answers when questioning. We will continue following this patient progress. On 12/04/24, the patient was evaluated and assessed at bedside. VS, labs and chart was reviewed. WBC are 14.1. The patient continues with IV antibiotics ceftriaxone and azithromycin also, he is receiving nebulization. The patient reports feeling better today. O2 via [place] has been reduced to 2L. with O2sat 96%. I spoke with patient mother and update her about his progress, his mother report that his asthma is not well controlled and he only uses rescue albuterol inhaler and montelukast po daily. A pulmonology consult was placed today. We will continue following this patient progress. On 12/05/24, the patient was evaluated and assessed at bedside. VS, labs and chart was reviewed. The patient continues with IV antibiotics ceftriaxone and azithromycin also, he is receiving scheduled nebulizations. The patient reports cough with yellowish sputum. Audible wheezing are still present, the patient is still on O2 via canula. Pulmonology is onboard, magnesium was added. I spoke with patient mother and update her about this patient's progress. We will continue following this patient progress. On 12/06/24, the patient was evaluated and assessed at bedside. VS, labs and chart was reviewed. The patient continues with IV antibiotics ceftriaxone and azithromycin also, he is receiving scheduled nebulizations with levalbuterol and ipatropium. Also receiving methylprednisolone TID. The patient reports wet cough with yellowish sputum. Preliminary sputum cultures showed: Many White Blood Cells, Many Gram Positive Cocci in pairs, Many Gram Positive Rods, Many Gram Negative Rods. Audible wheezing are still present, the patient is still on O2 via canula. Pulmonology is onboard, continues medneb were ordered. I spoke with patient mother and update her about this patient's progress. We will continue following this patient progress. On 12/07/24, the patient was evaluated and assessed at bedside. VS, labs and chart was reviewed. The patient continues with IV antibiotics ceftriaxone and azithromycin also, he is receiving scheduled nebulizations with levalbuterol and ipatropium. Also receiving methylprednisolone TID. The patient reports feeling better. The O2 via NC was discontinued, he is tolerating well room air, O2sat is 98% at room air. Due to significant clinical improvement the patient is being discharged home today. I spoke with patient mother and update her about this patient's discharge, the mother agrees with the discharge plan. The patient will f/u with auctioneer tobacco (Dr. Sosa) as an out patient and with PCP in one week. ROS: patient only gives straights and short answers when questioning. Her mother reports the following: Constitutional: Denies Weight loss. No: Fever, Chills, Sweats, Weakness, Malaise Eyes: No: Pain, Vision change, Conjunctivae inflammation, Eyelid inflammation, Other, Redness ENT: No: Ear pain, Ear discharge, Nose pain, Nose discharge, Nose congestion, Mouth pain, Mouth swelling, Throat pain, Throat swelling Respiratory: shortness of breath and wheezing. Wet Cough. Denies Hemoptysis, Pleuritic Pain, Sputum. Cardiovascular: No Chest Pain; No: Palpitations, Orthopnea, No Edema, Lt Headedness Gastrointestinal: No: Nausea, Vomiting, Abdominal Pain, Diarrhea, Constipation, Melena, Hematochezia Genitourinary: No Dysuria, No Frequency, No Incontinence, No Hematuria, No Retention Musculoskeletal: denies edema or leg swelling Skin: No: Rash, Lesions, Jaundice, Bruising Neurological: No: Weakness, Numbness, Incoordination, Change in speech, Confusion, Seizures General Appearance Alert, Oriented in person, Cooperative, No acute distress. On O2 by NC. HEENT: Atraumatic, left eye blindness, Mucous membranes moist/pink Respiratory: No audible wheezing, normal expansion on both lungs, ronchi and wheezing decreased and improved. Cardiovascular: Regular rate, Normal S1, Normal S2, no murmurs. Abdominal: Normal bowel sounds, Soft, no tenderness Extremities: no edema, normal ROM Neuro: Strength at 5/5 X4 ext, Normal tone, Sensation intact Psych/Mental Status: patient has autism but responds to question with straight and short answers. Consults/Reason for consult Pulmonology: for asthma exacerbation Operations or Procedures PROCEDURE(s): CXRP - CHEST PORTABLE REASON: sob ORDER NUMBER(s): [id number], ACCESSION NUMBER(s): [id number] XY CHEST PORTABLE, HISTORY: sob COMPARISON: XY CHEST XRAY 1 VIEW on DOS: 12/01/24 XY CHEST XRAY 1 VIEW on DOS: 12/01/24 TECHNICAL DATA: 1 view of the chest was obtained. FINDINGS: Lines and tubes: None Cardiomediastinal silhouette: normal Pulmonary vasculature: normal Lung expansion: normal Lung airspace: normal Lung interstitium: normal Pleura: normal Pneumothorax: no Bones: Unremarkable Other: no IMPRESSION: No acute intrathoracic abnormality. Condition at Discharge: Stable Final Diagnosis/Problems List #Sepsis due acute community acquired pneumonia gram +/- #Acute hypoxic respiratory failure #Acute on chronic asthma exacerbation #Autism #Chronic Bilateral retinal detachement, chronic left eye blindness #Chronic right eye glaucoma Discharge Disposition: Home SNF Discharge Will this Physician continue t: No Discharge Instruct/Medications Diet: Regular Activity: No Restrictions, As Tolerated Follow Up/Referral: F/U with PCP in 1 week F/U with [facility] Attacher in 1 week (Dr. Sosa) Medications: Bunesonide/formoterol inhailer 2 puff daily Prednisone 40mg po qd for 5 days Continue with home medications. Scheduled Acetazolamide (Acetazolamide), 500 MG PO Q12HR, (Reported) Albuterol Sulfate (Albuterol Sulfate Hfa), 108 MCG IN TID Azithromycin (Azithromycin), 1 TAB PO DAILY Budesonide-Formoterol Fumarate (Budesonide/Formoterol Fum 80-4.5 Mcg/Act), 2 AER IN DAILY Prednisolone Acetate (Ophth) (Pred Forte), 1 % OP BID, (Reported) Prednisone (Prednisone), 40 MG PO DAILY Miscellaneous Medications Patients Own Medication (Patients Own Medication), (Reported) Discontinued Medications Brimonidine Tartrate (Brimonidine Tartrate), 1 DROP RIGHTEYE TID, (Reported) Methylprednisolone (Medrol Dosepak), 4 MG PO UD Discharge Statement: "Patient was advised to return to the ER or call 911 if any headaches, dizziness, shortness of breath, chest pain, abdominal pain, bleeding, fevers, or worsening of medical condition. Patient was counseled about treatment plan, medications, possible side effects, patientverbalized understanding. All questions were answered to the best of my ability. This discharge took greater then 30 minutes in planning, reviewing documentation, counseling the patient, and discussing with other team members." ASSESSMENT ASSESSMENT Assessment #Sepsis due acute community acquired pneumonia gram +/- #Acute hypoxic respiratory failure #Acute on chronic asthma exacerbation #Autism #Chronic Bilateral retinal detachment, chronic left eye blindness #Chronic right eye glaucoma Goals of care discussed with the patient's mother for more than 35 minutes Code Status: Full code PCP: Debbie العراقي Case discussed with Dr. Roy The patient's mother agreed with the discharge plan. Date of Service: Dec 07, 2024 Billing Provider: GEOVANNI ROY MD Common Visit Codes: [id number] DISCH DAY >30min ZACHARYHAMMAD RESIDENT Dec 07, 2024 11:04 GEOVANNI ROY MD Dec 07, 2024 23:37
--- NOTE | 2024-12-07 22:49 | DVHPN2 ---
Subjective DOS: 12/07/2024 Patient seen and examined at bedside. Currently on room air. Overnight events reviewed. Changes from previous H/P or p: No Changes Objective Vitals Vital Signs Date Time Temp Pulse Resp B/P (MAP) Pulse Ox O2 Delivery O2 Flow Rate FiO2 12/07/24 14:38 36.7 12/07/24 14:00 106 24 100 12/07/24 13:52 Room Air* 0 21 12/07/24 05:00 133/74 (93) Intake/Output Intake and Output 12/07/24 07:00 Intake Total 2890 ml Balance 2890 ml Intake Oral 2590 ml IV Total 300 ml # Voids 5 # Bowel Movements 3 Exam Gen.: Patient lying in bed in no apparent distress. On room air. Head: Normocephalic, atraumatic. Eyes: EOMI/PERRLA. Ears: Normal hearing. Normal anatomy. Neck/trachea: Trachea midline, supple. Nose: Normal external anatomy. Mouth: Moist mucous membranes. Chest: Decreased air entry bilaterally. Wheezing present. No rhonchi. Cardiovascular: Positive S1, positive S2. Regular rate and rhythm. Abdomen: Positive bowel sounds in all 4 quadrants. Soft, non-tender, non- distended. : Deferred. Rectal: Deferred. Skin: Warm, dry. Intact. Extremities: 2+ radial pulses bilaterally. No lower extremity edema. Neuro: Awake, alert, oriented x3. No gross motor or sensory deficits. Cranial nerves II through XII intact. Gait not assessed Laboratory Results Laboratory Tests 12/07/24 05:30 Chemistry Test 12/07/24 05:30 Calcium Level 8.4 mg/dL (8.7-10.4) L Urinalysis Test 12/03/24 04:43 Urine Color Light-yellow (Yellow) Urine Clarity Clear (Clear) Urine pH 6.0 (5.0-9.0) Urine Specific [place] 1.023 (1.001-1.035) Urine Protein Negative (Negative) Urine Ketones Trace (Negative) Urine Blood Negative /uL (Negative) Urine Nitrite Negative (Negative) Urine Bilirubin Negative (Negative) Urine Urobilinogen Normal mg/dL (Negative) Urine Leukocyte Esterase Negative /uL (Negative) Urine RBC <1 /hpf (0 - 3) Urine Microscopic WBC < 1 /HPF (0-3) Urine Squamous Epithelial Cells None seen /hpf (<5) Urine Bacteria None seen /hpf (None Seen) Urine Mucus Few (None Seen) Urine Glucose Normal mg/dL (Normal) Microbiology Microbiology Date/Time Source Procedure Growth Status 12/03/24 04:43 Voided Urine Urine Culture - Final Complete 12/02/24 21:56 Nose MRSA Screen - Final Complete 12/02/24 12:45 Sputum Gram Stain - Final Complete 12/02/24 12:45 Sputum Respiratory Culture - Final Complete 12/02/24 09:25 Blood Blood Culture - Final NO GROWTH AFTER 5 DAYS OF INCUBATION. Complete Assessment/Plan Assessment/Plan Impression: Acute hypoxic respiratory failure Asthma exacerbation Atelectasis Wheezing Events: Remains on room air. No distress. Patient is feeling better. No acute overnight events. Continue bronchodilators Continue antibiotics WBC trended up to 19.1 K. Antitussive PRN cough On IV steroids Incentive spirometry Disposition planning Labs and imaging reviewed. Rest of plan as noted below. Plan: Supplemental oxygen PRN Titrate to keep O2 sats above 92%. Chest x-ray on 12/02/24 shows no acute opacities. Continue bronchodilators. Continue antibiotics Antitussive for cough Incentive spirometry Monitor renal function. Monitor electrolytes. Supplement as necessary. Monitor ins and outs. DVT prophylaxis. Prognosis: Guarded given patient's multiple co-morbidities. Rest of plan per hospitalist and other consultants. Thank you, Dr. Rodriguez, for allowing me to participate in this patient's care. Further recommendations will depend on the patient's clinical course. Please do not hesitate to contact me if you have any questions or concerns. This medical document was created using an electronic medical record system with [employer] dictation system. Although these documentations are being carefully reviewed, there may still be some phonetic and typographical changes. The errors are purely typographical, due to imperfection on the software program, and do not reflect any compromise in the patient's medical care. Plan discussed with: Patient, Other (RN) Visit Coding Pulmonary Billing Provider: DHIRAJ ANTON MD Date of Service if different f: Dec 07, 2024 Common Visit Codes: [id number] INP/OBS CARE(HIGH) DHIRAJ ANTON MD Dec 07, 2024 22:49
== END 2024-12-07 15:15 | disposition home or self-care (01) | DRG 871 ==
LOC: ER 07:51 → OVERFLOW 11:06 → TELE-CENTR 15:39
PROVIDERS: ADMIT Internal Medicine; ATTEND Internal Medicine
DX: A41.59 Other Gram-negative sepsis (principal); J15.69 Pneumonia due to other Gram-negative bacteria; J96.01 Acute respiratory failure with hypoxia; J15.9 Unspecified bacterial pneumonia; E87.1 Hypo-osmolality and hyponatremia; J45.901 Unspecified asthma with (acute) exacerbation; F84.0 Autistic disorder; H33.23 Serous retinal detachment, bilateral; Z20.822 Contact with and (suspected) exposure to COVID-19; A41.9 Sepsis, unspecified organism; H40.9 Unspecified glaucoma; E86.1 Hypovolemia; H54.8 Legal blindness, as defined in USA; Z79.899 Other long term (current) drug therapy
CPT/HCPCS: 36415; 36600; 71045; 80048; 80053; 80061; 80076; 80307; 81001; 82306; 82607; 82805; 83036; 83605; 83735; 84100; 84443; 85025; 85610; 85730; 86141; 87040; 87070; 87081; 87086; 87205; 87426; 87804; 93005; 93306; 94640; 94644; 96365; 96367; 96375; 99291; 99292; G0378; J2470; Q0161